=== PATIENT | male | born 1945 | race Caucasian/White ===

== ENCOUNTER 2018-06-04 20:42 | Inpatient (IN) ==
[2018-06-05] MEDS ORDERED: *HR* FentaNYL (PF) 100 MCG/2 ML VIAL IVP PRN (02:29)
[2018-06-05] MEDS ORDERED: Ondansetron 4 MG/2 ML VIAL IVP PRN (02:31)
[2018-06-05] MEDS: 0.9 % Sodium Chloride 1,000 ML IVC SCH ×2 (03:27→22:12)
[2018-06-05 04:15] LABS: Basophils % 0.3 %; Eosinophils % 0.3 %; Hematocrit 37.8 % (37.5-50.1); Hemoglobin 12.8 g/dL (12.9-16.9); Immature Granulocytes % 0.2 % (0-4); Lymphocytes # 1.6 K/mcL (0.6-4.6); Lymphocytes % 14.6 %; Mean Corpuscular HGB Conc 33.9 g/dL (31.6-35.5); Mean Corpuscular Hemoglobin 30.6 pg (28.0-33.3); Mean Corpuscular Volume 90.4 fL (83.0-100.0); Mean Platelet Volume 9.6 fL (9.4-12.4); Monocytes # 0.4 K/mcL (0.0-1.3); Monocytes % 3.8 %; Neutrophils # 8.6 K/mcL (1.6-8.9); Platelet Count 121 K/mcL (140-400); Red Blood Count 4.18 M/mcL (4.19-5.50); Red Cell Distribution Width 14.8 % (11.5-14.5); Segmented Neutrophils % 80.8 %
[2018-06-05 04:38] LABS: Alanine Aminotransferase 13 Units/L (7-52); Albumin 3.1 g/dL (3.5-5.7); Alkaline Phosphatase 56 Units/L (34-104); Aspartate Amino Transferase 19 Units/L (13-39); BUN/Creatinine Ratio 31 (6-26); Bilirubin,Direct 0.2 mg/dL (0.0-0.2); Bilirubin,Indirect 0.8 mg/dL (0.0-1.2); Blood Urea Nitrogen 23 mg/dL (8-23); Calcium 8.4 mg/dL (8.6-10.3); Carbon Dioxide 22 mEq/L (23-29); Chloride 107 mEq/L (98-107); Globulin 3.1 g/dL (2.4-3.5); Glucose 101 mg/dL (70-105); Osmolality,Calculated 280 (280-300); Potassium 4.1 mEq/L (3.5-5.1); Sodium 133 mEq/L (136-145); Total Protein 6.2 g/dL (6.4-8.9); eGFR For Non-African Americans > 60 (> 60)
[2018-06-05] MEDS ORDERED: Naloxone 0.4 MG/ML INJ IVP PRN (04:44)
--- NOTE | 2018-06-05 05:06 | Internal Med History&Physical ---
Date of Encounter: 06/05/18 Time of Encounter: 04:00 Internal Medicine - H&P: HPI Chief complaint: RUQ pain Admitted From: Hospital to Hospital Transfer Plans for Post Hospital Care: Home History of present illness: Mr. Alexander is a 73 year old male who presents in transfer from [facility] ER with complaints of right upper quadrant abdominal pain, nausea, vomiting, and one episode of diarrhea. Symptoms started yesterday and progressively worsened. They double him over a few times. As such, he proceeded to go to ER where he was evaluated and found to have CT evidence of suspected cholecystitis. I was contacted to transfer patient to [facility] for ongoing care and further workup of his troponin elevation. Upon my assessment of the patient, he has minimal abdominal pain now. He does have some nausea. His pain is easily reproducible by palpation of his right upper quadrant. He denies any chest pain, shortness of breath, or diaphoresis. He has had some minimal heartburn. He denies any fevers, shakes, chills, or night sweats. I reviewed his labs from [facility] and note the EKG. He has left bundle branch block on his EKG with no old EKGs to review. He denies any history of heart disease, but he admits to having had a stroke several years ago. He also states he has a Loret[place] filter in place while he was hospitalized at [facility] about 3 years ago. He is unclear as to why he has N[place] filter. He denies any prior history of DVT or PE. He does have some residual left-sided deficits from his stroke. He is a rather poor historian and does not recall much of his medical history. Past Med Surg Social Fam HX - Past Medical History Attestation: Yes The following information was validated with the patient. Source: patient, old records reviewed, other ([facility] records) Medical history: COPD, CVA, DVT, hypertension Psychiatric history: no psych history - Past Surgical History Surgical History: herniorrhaphy, hip replacement Additional surgical history: Loretto filter - Social History Smoking Status: Current every day smoker Smokeless Tobacco Status: No Alcohol use: none Drug use: none Current living situation: Home - Independent Activity Level: Independent ambulation Recent Out of Country Travel Within the Last 8 Weeks: No - Family History Brother Name: Daljit Alexander Age: 74 Twin of Family Member: Yes, Fraternal Living Status: Still Living Hx Family Cardiac Disorders: Yes (cabg) Hx Family Respiratory Disorders: No Hx Family Cancer: No Hx Family GI Disorders: No Hx Family Genitourinary Disorders: No Hx Family Endocrine Disorder: No Mother Living Status: Hx Family Cardiac Disorders: No Hx Family GI Disorders: No Father Living Status: Hx Family Cardiac Disorders: Yes Hx Family GI Disorders: No Internal Medicine - H&P: Meds Aspirin [Lo-Dose Aspirin EC] 81 mg PO DAILY 06/04/18 [History] 3 Allergy/AdvReac Type Severity Reaction Status Date / Time adhesive tape Allergy Rash Verified 06/04/18 17:55 Penicillins Allergy Hives Verified 06/04/18 17:55 - Constitutional Constitutional: no chills, no fever(s), no night sweats - EENT Eyes: change in vision (right eye -- cataract), no blurry vision Ears: no ear pain, no tinnitus Nose, mouth and throat: no nasal congestion, no sinus pressure, no sore throat - Cardiovascular Cardiovascular ROS IM: no chest pain, no diaphoresis, no dyspnea - Respiratory Respiratory: no cough, no hemoptysis, no chest congestion, no excessive phlegm production, no change in phlegm color - Gastrointestinal Gastrointestinal: abdominal pain, diarrhea, nausea, vomiting, no hematemesis, no hematochezia, no melena - Genitourinary Genitourinary ROS male: no dysuria, no flank pain, no hematuria - Musculoskeletal Musculoskeletal ROS IM: no arthralgias, no back pain - Integumentary Integumentary IM: no rash, no jaundice - Neurological Neurological ROS: weakness (left sided -- from old stroke), no dizziness, no focal weakness, no frequent falls, no headache(s) - Psychiatric Psychiatric: no anxiety, no depression - Endocrine Endocrine IM: no polydipsia, no polyuria - Allergic/Immunologic Allergic/Immunologic: GI upset with certain foods - Constitutional Vitals: Temp Pulse Resp BP Pulse Ox 97 F L 77 15 121/69 91 06/05/18 00:00 06/05/18 00:00 06/05/18 00:00 06/05/18 00:00 06/05/18 00:00 General appearance: Present: cooperative, A&O X 3, pleasant, no acute distress, answers questions appropriately Exam: see below - Head Head exam: Present: atraumatic, normal inspection - Eye Eye exam: Present: EOMI. Absent: PERRL, scleral icterus Pupils: Present: normal accommodation Additional comments: right cataract - ENT ENT exam: Present: mucous membranes dry, normal exam, normal oropharynx - Neck Neck exam general surgery: Present: full ROM, supple. Absent: tenderness, nuchal rigidity, thyromegaly - Respiratory Respiratory exam: Present: CTAB. Absent: chest wall tenderness, rales, rhonchi , wheezes - Cardiovascular Cardiovascular exam: Present: RRR, +S1, +S2. Absent: diastolic murmur, systolic murmur - GI/Abdominal GI/Abdominal exam: Present: guarding, hypoactive bowel sounds, soft, tenderness (RUQ), no peritoneal signs. Absent: hepatomegaly, rebound, splenomegaly - Extremities Exam Extremities exam: Present: normal capillary refill, warm, radial pulses palpable and symmetrical. Absent: calf tenderness, tenderness Additional comments: left hand in contracture from old stroke - Back Exam Back exam: Absent: CVA tenderness (L), CVA tenderness (R) - Neurological Exam Neurological exam: Present: alert, oriented X3. Absent: no focal deficits ( left hand/arm contracted from old stroke) - Psychiatric Psychiatric exam: Present: normal affect, normal mood - Skin Skin exam: Present: dry, warm. Absent: intact Internal Med - H&P Results - Labs CBC & Chem 7: 06/05/18 04:07 06/05/18 04:07 Labs: Short CBC 06/05/18 Range/Units 04:07 WBC 10.6 (4.3-11.1) K/mcL Hgb 12.8 L D (12.9-16.9) g/dL Hct 37.8 (37.5-50.1) % Plt Count 121 L (140-400) K/mcL Neutrophils # 8.6 (1.6-8.9) K/mcL BMP 06/05/18 04:07 Sodium 133 L Potassium 4.1 Chloride 107 Carbon Dioxide 22 L BUN 23 Creatinine 0.75 Glucose 101 Calcium 8.4 L Cardiac Enzymes 06/05/18 Range/Units 04:07 Troponin I 0.25 H* (< 0.04) ng/mL Liver Function 06/05/18 Range/Units 04:07 Total Bilirubin 1.0 (0.3-1.0) mg/dL Direct Bilirubin 0.2 (0.0-0.2) mg/dL AST 19 (13-39) Units/L ALT 13 (7-52) Units/L Alkaline Phosphatase 56 (34-104) Units/L Albumin 3.1 L (3.5-5.7) g/dL - EKG Data -: EKG Interpreted by Myself - EKG Data Prior EKG available for review: no EKG comments: 06/05/18 05:16 LBBB - Diagnostic Studies CT scan - abdomen Additional comments: Report reviewed: GB thickening and cholecystitis. - Assessment and plan (1) Acute cholecystitis Current Visit: Yes Status: Suspected Assessment and plan: 1. Will order RUQ ultrasound to evaluate GB. 2. Continue IV antibiotics. 3. Will need surgery consult today; however, if surgery necessary, will need to discuss with cardiology and if/when patient may proceed with surgery. 4. NPO, pain control, nausea control. 5. Will trend CBC, LFT's, and chemistries. (2) Elevated troponin I level Current Visit: Yes Status: Acute Assessment and plan: 1. Patient denies CP but patient has LBBB (presumed new). 2. Will trend troponins and EKG's. 3. Will order ECHO. 4. Consult cardiology for further work-up. (3) DVT prophylaxis Current Visit: Yes Status: Acute Assessment and plan: 1. Heparin SQ.
[2018-06-05 05:21] LABS: INR 1.4
[2018-06-05 05:22] LABS: Prothrombin Time 15.3 Seconds (9.4-12.1)
[2018-06-05 05:24] LABS: Activated Partial Thrombo Time 29.3 Seconds (26.0-36.0)
[2018-06-05] MEDS: *HR* Heparin 5,000 UNIT/ML VIAL SQ SCH ×2 (05:59→17:56)
[2018-06-05] MEDS ORDERED: MORPHINE SUL Oral CONC 10 MG/0.5 ML ORAL.SYG SL PRN (09:56)
--- NOTE | 2018-06-05 10:06 | Cardiology Consult Note ---
Date of Encounter: 06/05/18 Time of Encounter: 09:58 Assessment and Plan (1) LBBB (left bundle branch block) Current Visit: Yes Status: Acute EKG shows sinus bradycardia, HR 59 bpm. LBBB. Prior EKG from 2015 reviewed and shows LBBB. This is not a new finding. (2) Elevated troponin I level Current Visit: Yes Status: Acute Mild troponin elevation up to 0.25 in the setting of acute cholecystitis. C/o chest pain yesterday that occurred after vomiting and relieved with 7-up. Likely GI related. He can complete moderate activity without anginal symptoms. Cardiac risk factors include family history (twin brother with OHS), tobacco use , and HTN. Check TTE. Noted patient may need surgery for acute cholecystitis. Would not delay surgery for testing if sugery is urgent. Discussion w patient/family: The assessment and plan as outlined above was discussed with the patient and/or family members who expressed understanding and agreement. All questions were answered. Thank you for involving us in the care of your patient. Please call with any questions. History of Present Illness Consult date: 06/05/18 Requesting physician: Earl Rocha Consult reason: LBBB, elevated troponin Chief complaint: abdominal pain History of present illness: Mr. Alexander is a 73 year old male with medical history of HTN, CVA, and tobacco use. He presents with 24 hours of nausea, vomiting, abdominal pain, and chest discomfort. He is found to have acute cholecystitis. Cardiology consulted for LBBB and elevated troponin. He states he was dry heaving for 20 minutes yesterday and developed midsternal burning discomfort. He drank a 7-up with relief . C/o RLQ pain for 24 hours that increases with movement. States he has not seen a family doctor in over 10 years. He was hospitalized 5 years ago at [place] for CVA. His work-up revealed LBBB, age undetermined. Troponin elevated up to 0.25. He denies exertional chest pain. 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 When he walks to his mailbox he may be somewhat SOB but it is unchanged. Denies diaphoresis or palpitations. Past Med Surg Social Fam HX - Past Medical History Medical history: COPD, CVA, DVT, hypertension Psychiatric history: no psych history - Past Surgical History Surgical History: herniorrhaphy, hip replacement Additional surgical history: [place] filter - Social History Smoking Status: Current every day smoker Smokeless Tobacco Status: No Alcohol use: none Drug use: none - Family History Brother Name: Daljit Alexander Age: 74 Twin of Family Member: Yes, Fraternal Living Status: Still Living Hx Family Cardiac Disorders: Yes (cabg) Hx Family Respiratory Disorders: No Hx Family Cancer: No Hx Family GI Disorders: No Hx Family Genitourinary Disorders: No Hx Family Endocrine Disorder: No Mother Living Status: Hx Family Cardiac Disorders: No Hx Family GI Disorders: No Father Living Status: Hx Family Cardiac Disorders: Yes Hx Family GI Disorders: No Medications and Allergies Aspirin [Lo-Dose Aspirin EC] 81 mg PO DAILY 06/04/18 [History] 3 Allergy/AdvReac Type Severity Reaction Status Date / Time adhesive tape Allergy Rash Verified 06/04/18 17:55 Penicillins Allergy Hives Verified 06/04/18 17:55 All Systems Review: The remainder of the systems were reviewed and are negative Physical Examination Vital Signs, Last 4 Hours Temp Pulse Resp BP Pulse Ox 06/05/18 07:21 97.6 F 69 16 121/77 97 General: Conversant, No Apparent Distress HEENT: Atraumatic, Normocephaly, Mucus Membranes Moist Neck: No JVD, Normal carotid pulses Cardiac: Reg Rate and Rhythm, Normal S1 and S2, No Murmur Lungs: Normal Breath Sounds, No Wheeze, Rales, Rhonchi Neuro: Alert and responsive, Other (Contracted left arm) Abdomen: Soft, Other (tender to palpation) Skin: Other (scabbed areas on BLE) Musculoskeletal: No Chest Wall Tenderness Extremities: No Clubbing, No Cyanosis, No Edema, Normal Pulses Results 06/05/18 04:07 06/05/18 04:07 Lab Results 06/05/18 06/05/18 06/05/18 04:07 04:07 04:07 WBC 10.6 Hgb 12.8 L D Hct 37.8 Plt Count 121 L INR 1.4 APTT 29.3 Sodium Potassium Chloride Carbon Dioxide BUN Creatinine Glucose Calcium Total Bilirubin AST ALT Alkaline Phosphatase Troponin I 0.25 H* 06/05/18 04:07 WBC Hgb Hct Plt Count INR APTT Sodium 133 L Potassium 4.1 Chloride 107 Carbon Dioxide 22 L BUN 23 Creatinine 0.75 Glucose 101 Calcium 8.4 L Total Bilirubin 1.0 AST 19 ALT 13 Alkaline Phosphatase 56 Troponin I - EKG Interpretation EKG results cardiology: personally reviewed, left bundle branch block (not new) Consult Discharge Plan - Plan Referrals: NONE,PCP [Primary Care Provider] - Joselo Loaiza MD [Family Provider] -
[2018-06-05] MEDS: MetroNIDAZOLE 500 MG/100 ML 500 MG/100 ML BAG IVPB SCH ×2 (10:21→16:40)
[2018-06-05] MEDS: Aspirin Enteric Coated 81 MG Tablet PO SCH (10:21)
[2018-06-05] MEDS ORDERED: *HR* Morphine 2 MG/ML SYRINGE IVP ONE (13:59)
--- NOTE | 2018-06-05 15:33 | Event Note ---
<[place] nunn - Last Filed: 06/05/18 17:50> Date of Encounter: 06/05/18 Time of Encounter: 09:45 S: Mr. Alexander is a 73 y/o male who was admitted as a transfer from [facility] ED for RUQ pain x 1 day and incidental finding of elevated troponin of 0.25. His PMH is significant for CVA 3 years ago, HTN, tobacco use, with [place] filter in place. Patient showed LBBB on ECG, [facility] CT abd/pelvis showed cholecystic changes. At time of evaluation he denies chest pain, shortness of breath, fever, or sweating. O: Gen: afebrile, NAD, a&ox3, nondiaphoretic CV: RRR in 70s, +S1, +S2 Lung: CTAB, normal chest wall excursion Abd: Negative velez's sign, soft, nontender nondistended A/P: 1. 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 Elevated troponin LBBB seen on previous ekg from 2015 troponin downtrending 0.25 ->0.15->0.15 echo with ef of 45% Cardiology following - suspect gallbladder inflammatory response as type 2 source of elevation, however cannot rule out ACS so plan is for LHC to be discussed AM; patient to be npo at midnight, clear liquids for 1 meal tonight 3. dvt proph heparin sq q12h <Antwon De - Last Filed: 06/05/18 18:43> Date of Encounter: 06/05/18 Mr Alexander was placed in observation earlier today due to concern for acute cholecystitis and elevated troponin. Currently he has no pain. HIDA consistent with chronic disease. Plan LHC per cardiology Surgical eval Agree with assessment and plan as above.
--- NOTE | 2018-06-05 17:43 | Event Note ---
Date of Encounter: 06/05/18 Time of Encounter: 17:41 - Cardiology Event Note TTE reviewed. Ef noted to be reduced at 45%. No prior history of CAD. Recommend LHC tomorrow. Discussed with Dr. Edge. No emergent need for cholecystectomy. Planning for possible surgery on . Okay to proceed with C.
--- NOTE | 2018-06-05 17:56 | General Surgery Consult Note ---
<Artis Perez R - Last Filed: 06/05/18 17:54> Date of Encounter: 06/05/18 Time of Encounter: 17:54 Assessment and Plan (1) Acute cholecystitis Current Visit: Yes Status: Suspected Patient status has improved today since initiation of pain management and antibiotic therapy. Acute cholecystitis is suspected at this time. Gallbladder ultrasound did reveal evidence of gallstones, biliary sludge, as well as possible pericholecystic fluid. HIDA scan did demonstrate gallbladder dysfunction. Patient possibly to surgery on , he is on schedule Continue antibiotic therapy with ciprofloxacin and metronidazole Continue comfort care and pain management Incentive spirometry every 1 hour while awake Ambulation 3 times a day with assistance NPO prior to surgery (2) Elevated troponin I level Current Visit: Yes Status: Acute We will defer treatment to cardiology and follow recommendations. Per cardiology [facility] possible in the a.m. Nothing by mouth after midnight in anticipation of possible left heart catheter At present from a surgical standpoint patient is nonemergent. History of Present Illness Consult date: 06/05/18 (Dr. Edge) History of present illness: Patient is 73-year-old male initially presenting to the [place] ER yesterday afternoon with chief complaint of right lower quadrant abdominal pain. Patient states pain started suddenly approximately 10:30 AM. Pain is sharp in quality, and rated at 10/10 at that time. No prior history of similar pain. Patient endorses nausea and vomiting at onset. Denies change in bowel habits, diarrhea , constipation, hematochezia, or melena. Patient denies fever, or urinary symptoms. Initial CT demonstrated evidence of a suspected cholecystitis as well as troponin elevation, patient was transported to [place] for ongoing care. Ultrasound did demonstrate biliary sludge and evidence of gallstones, possible pericholecystic fluid and gallbladder inflammation. HIDA scan did demonstrate abnormal and slowed gallbladder function. At present patient is tolerating clear liquid diet without significant pain. Currently he states his pain is 3/10 at rest, does increase to 8/10 with excessive movement and coughing. Denies nausea, vomiting, diarrhea, or fever. Patient states last bowel movement was yesterday. Has been passing flatus today. Patient states that he is fearful of pain recurring due to its intensity. Past Med Surg Social Fam HX - Past Medical History Medical history: COPD, CVA, DVT, hypertension Psychiatric history: no psych history - Past Surgical History Surgical History: herniorrhaphy, hip replacement Additional surgical history: [place] filter - Social History Smoking Status: Current every day smoker Smokeless Tobacco Status: No Alcohol use: none Drug use: none - Family History Brother Name: Daljit Alexander Age: 74 Twin of Family Member: Yes, Fraternal Living Status: Still Living Hx Family Cardiac Disorders: Yes (cabg) Hx Family Respiratory Disorders: No Hx Family Cancer: No Hx Family GI Disorders: No Hx Family Genitourinary Disorders: No Hx Family Endocrine Disorder: No Mother Living Status: Hx Family Cardiac Disorders: No Hx Family GI Disorders: No Father Living Status: Hx Family Cardiac Disorders: Yes Hx Family GI Disorders: No Medications and Allergies Aspirin [Lo-Dose Aspirin EC] 81 mg PO DAILY 06/04/18 [History] 3 Allergy/AdvReac Type Severity Reaction Status Date / Time adhesive tape Allergy Rash Verified 06/04/18 17:55 Penicillins Allergy Hives Verified 06/04/18 17:55 Review of Systems All systems PM: The remainder of the systems were reviewed and are negative - Gastrointestinal abdominal pain, nausea, vomiting General Surgery Exam Initial Vital Signs Pulse Resp BP Pulse Ox 81 15 135/71 95 06/04/18 22:44 06/04/18 22:44 06/04/18 22:44 06/04/18 22:44 - General physical appearance no distress, other (Mild pain) - Eyes PERRL, normal ocular movement - ENT atraumatic, normocephalic - Neck trachea midline - Respiratory normal respiratory effort, clear to auscultation - Cardiovascular Cardiovascular exam: Present: RRR - Abdomen Abdomen general surgery: Present: bowel sounds present, tender, guarding (To deep palpation of the right upper and lower quadrants) Abdominal Tenderness: Present: RUQ, RLQ - Integumentary Integumentary general surgery: Present: warm and dry, no abnormal pigmentation - Neurologic Present: CN 2-12 grossly intact - Psychiatric Psychiatric general surgery: Present: A&Ox3, appropriate, speech is normal Exam Initial Vital Signs Pulse Resp BP Pulse Ox 81 15 135/71 95 06/04/18 22:44 06/04/18 22:44 06/04/18 22:44 06/04/18 22:44 Results - Labs 06/05/18 04:07 06/05/18 04:07 Abnormal lab results RBC 4.18 M/mcL (4.19-5.50) L 06/05/18 04:07 Hgb 12.8 g/dL (12.9-16.9) L D 06/05/18 04:07 RDW 14.8 % (11.5-14.5) H 06/05/18 04:07 Plt Count 121 K/mcL (140-400) L 06/05/18 04:07 PT 15.3 Seconds (9.4-12.1) H 06/05/18 04:07 Sodium 133 mEq/L (136-145) L 06/05/18 04:07 Carbon Dioxide 22 mEq/L (23-29) L 06/05/18 04:07 BUN/Creatinine Ratio 31 (6-26) H 06/05/18 04:07 Calcium 8.4 mg/dL (8.6-10.3) L 06/05/18 04:07 Troponin I 0.15 ng/mL (< 0.04) H* 06/05/18 16:03 Serum Total Protein 6.2 g/dL (6.4-8.9) L 06/05/18 04:07 Albumin 3.1 g/dL (3.5-5.7) L 06/05/18 04:07 Albumin/Globulin Ratio 1.0 (1.1-2.2) L 06/05/18 04:07 Diabetes panel 06/05/18 Range/Units 04:07 Sodium 133 L (136-145) mEq/L Potassium 4.1 (3.5-5.1) mEq/L Chloride 107 (98-107) mEq/L Carbon Dioxide 22 L (23-29) mEq/L BUN 23 (8-23) mg/dL Creatinine 0.75 (0.70-1.30) mg/dL Glucose 101 (70-105) mg/dL Calcium 8.4 L (8.6-10.3) mg/dL AST 19 (13-39) Units/L ALT 13 (7-52) Units/L Alkaline Phosphatase 56 (34-104) Units/L Albumin 3.1 L (3.5-5.7) g/dL Calcium panel 06/05/18 Range/Units 04:07 Calcium 8.4 L (8.6-10.3) mg/dL Albumin 3.1 L (3.5-5.7) g/dL Pituitary panel 06/05/18 Range/Units 04:07 Sodium 133 L (136-145) mEq/L Potassium 4.1 (3.5-5.1) mEq/L Chloride 107 (98-107) mEq/L Carbon Dioxide 22 L (23-29) mEq/L BUN 23 (8-23) mg/dL Creatinine 0.75 (0.70-1.30) mg/dL Glucose 101 (70-105) mg/dL Calcium 8.4 L (8.6-10.3) mg/dL Adrenal panel 06/05/18 Range/Units 04:07 Sodium 133 L (136-145) mEq/L Potassium 4.1 (3.5-5.1) mEq/L Chloride 107 (98-107) mEq/L Carbon Dioxide 22 L (23-29) mEq/L BUN 23 (8-23) mg/dL Creatinine 0.75 (0.70-1.30) mg/dL Glucose 101 (70-105) mg/dL Calcium 8.4 L (8.6-10.3) mg/dL Total Bilirubin 1.0 (0.3-1.0) mg/dL AST 19 (13-39) Units/L ALT 13 (7-52) Units/L Alkaline Phosphatase 56 (34-104) Units/L Albumin 3.1 L (3.5-5.7) g/dL All other labs normal. Consult Discharge Plan - Plan Referrals: Joselo Loaiza MD [Family Provider] - NONE,PCP [Primary Care Provider] - <Arabella Edge - Last Filed: 06/07/18 09:30> Date of Encounter: 06/05/18 Time of Encounter: 07:45 Assessment and Plan (1) Symptomatic cholelithiasis Current Visit: Yes Status: Acute discussed with patient symptoms, labs and imaging results. He likely has symptomatic cholelithiasis. WIll plan laparoscopic cholecystectomy, possible cholangiograms, possible open in the next 48 hrs. risk and benefits disucssed and he wihses to proceed Ok for cardiology to evaluate patient first. clears prn pain control is on home aspirin History of Present Illness Requesting physician: Villa Robertson History of present illness: Patient with acute onset right sided abdominal pain, sharp without radiation. Associated nausea and emesis with the pain. No diarrhea, fevers,chills. Went to ED, CT showed gallbladder wall thickening. US showed stones and sludge. HIDA with delayed filling of gallbladder. Patients pain is improved but still present and dull without radiation. Worse with movement. Past Med Surg Social Fam HX - Past Medical History Source: patient Medical history: coronary artery disease, CVA (with left arm contractures) - Past Surgical History Surgical History: herniorrhaphy (Rt groin) Review of Systems All systems PM: reviewed and no additional remarkable complaints except as stated All systems PM: The remainder of the systems were reviewed and are negative General Surgery Exam Initial Vital Signs Pulse Resp BP Pulse Ox 81 15 135/71 95 06/04/18 22:44 06/04/18 22:44 06/04/18 22:44 06/04/18 22:44 - General physical appearance no distress, cachectic, chronically ill - Eyes normal ocular movement left lesions (cataract) - ENT normal mucosa, normocephalic - Neck trachea midline - Respiratory normal expansion, normal respiratory effort - Cardiovascular Cardiovascular exam: Present: RRR - Abdomen Abdomen general surgery: Present: bowel sounds present, soft, tender. Absent: distended, guarding, rebound Abdominal Tenderness: Present: RUQ - Integumentary Integumentary general surgery: Present: warm and dry - Neurologic Present: CN 2-12 grossly intact - Musculoskeletal Present: normal posture, other (left arm contracture) - Psychiatric Psychiatric general surgery: Present: A&Ox3, appropriate, speech is normal Exam Initial Vital Signs Pulse Resp BP Pulse Ox 81 15 135/71 95 06/04/18 22:44 06/04/18 22:44 06/04/18 22:44 06/04/18 22:44 Results - Labs 06/07/18 03:10 06/07/18 03:10 Abnormal lab results RBC 3.90 M/mcL (4.19-5.50) L 06/07/18 03:10 Hgb 12.3 g/dL (12.9-16.9) L 06/07/18 03:10 Hct 36.2 % (37.5-50.1) L 06/07/18 03:10 Plt Count 110 K/mcL (140-400) L 06/07/18 03:10 Platelet Estimate Slight Decrease (Normal) L 06/06/18 05:46 PT 13.8 Seconds (9.4-12.1) H 06/07/18 03:10 Sodium 134 mEq/L (136-145) L 06/07/18 03:10 Carbon Dioxide 22 mEq/L (23-29) L 06/07/18 03:10 Creatinine 0.59 mg/dL (0.70-1.30) L 06/07/18 03:10 Calculated Osmolality 276 (280-300) L 06/07/18 03:10 Calcium 8.1 mg/dL (8.6-10.3) L 06/07/18 03:10 Troponin I 0.15 ng/mL (< 0.04) H* 06/05/18 16:03 Serum Total Protein 5.8 g/dL (6.4-8.9) L 06/06/18 05:46 Albumin 2.8 g/dL (3.5-5.7) L 06/06/18 05:46 Albumin/Globulin Ratio 0.9 (1.1-2.2) L 06/06/18 05:46 HDL Cholesterol 21 mg/dL (40-59) L 06/06/18 05:46 Diabetes panel 06/07/18 Range/Units 03:10 Sodium 134 L (136-145) mEq/L Potassium 3.5 (3.5-5.1) mEq/L Chloride 107 (98-107) mEq/L Carbon Dioxide 22 L (23-29) mEq/L BUN 11 (8-23) mg/dL Creatinine 0.59 L (0.70-1.30) mg/dL Glucose 82 (70-105) mg/dL Calcium 8.1 L (8.6-10.3) mg/dL Calcium panel 06/07/18 Range/Units 03:10 Calcium 8.1 L (8.6-10.3) mg/dL Pituitary panel 06/07/18 Range/Units 03:10 Sodium 134 L (136-145) mEq/L Potassium 3.5 (3.5-5.1) mEq/L Chloride 107 (98-107) mEq/L Carbon Dioxide 22 L (23-29) mEq/L BUN 11 (8-23) mg/dL Creatinine 0.59 L (0.70-1.30) mg/dL Glucose 82 (70-105) mg/dL Calcium 8.1 L (8.6-10.3) mg/dL Adrenal panel 06/07/18 Range/Units 03:10 Sodium 134 L (136-145) mEq/L Potassium 3.5 (3.5-5.1) mEq/L Chloride 107 (98-107) mEq/L Carbon Dioxide 22 L (23-29) mEq/L BUN 11 (8-23) mg/dL Creatinine 0.59 L (0.70-1.30) mg/dL Glucose 82 (70-105) mg/dL Calcium 8.1 L (8.6-10.3) mg/dL All other labs normal. - Imaging CT scan - abdomen: report reviewed CT scan - pelvis: report reviewed US - abdomen: report reviewed Additional studies: HERNAN
[2018-06-05] MEDS: Nicotine 7 MG PATCH.TD24 TD SCH (21:06)
[2018-06-06] MEDS: MetroNIDAZOLE 500 MG/100 ML 500 MG/100 ML BAG IVPB SCH ×4 (01:05→23:57)
[2018-06-06] MEDS: *HR* Heparin 5,000 UNIT/ML VIAL SQ SCH ×2 (05:52→17:24)
[2018-06-06 06:18] LABS: Basophils % 0.2 %; Eosinophils # 0.1 K/mcL (0.0-0.6); Eosinophils % 1.3 %; Hematocrit 37.6 % (37.5-50.1); Hemoglobin 12.5 g/dL (12.9-16.9); Immature Granulocytes % 0.5 % (0-4); Lymphocytes % 17.1 %; Mean Corpuscular HGB Conc 33.2 g/dL (31.6-35.5); Mean Corpuscular Hemoglobin 31.3 pg (28.0-33.3); Mean Corpuscular Volume 94.2 fL (83.0-100.0); Mean Platelet Volume 10.1 fL (9.4-12.4); Monocytes # 0.3 K/mcL (0.0-1.3); Neutrophils # 4.6 K/mcL (1.6-8.9); Platelet Count 94 K/mcL (140-400); Red Blood Count 3.99 M/mcL (4.19-5.50); Red Cell Distribution Width 14.6 % (11.5-14.5); Segmented Neutrophils % 75.9 %
[2018-06-06 06:37] LABS: Alanine Aminotransferase 9 Units/L (7-52); Albumin 2.8 g/dL (3.5-5.7); Albumin/Globulin Ratio 0.9 (1.1-2.2); Alkaline Phosphatase 53 Units/L (34-104); Aspartate Amino Transferase 15 Units/L (13-39); BUN/Creatinine Ratio 24 (6-26); Bilirubin,Total 0.7 mg/dL (0.3-1.0); Blood Urea Nitrogen 18 mg/dL (8-23); Carbon Dioxide 23 mEq/L (23-29); Chloride 108 mEq/L (98-107); Chol/HDL Ratio 3.5 (0-4.9); Cholesterol 74 mg/dL (< 200); Glucose 84 mg/dL (70-105); HDL Cholesterol 21 mg/dL (40-59); LDL Cholesterol,Calculated 41 mg/dL (0-99); Magnesium 1.8 mg/dL (1.6-2.6); Osmolality,Calculated 277 (280-300); Potassium 3.9 mEq/L (3.5-5.1); Sodium 133 mEq/L (136-145); Total Protein 5.8 g/dL (6.4-8.9); Triglycerides 60 mg/dL (< 150); eGFR For Non-African Americans > 60 (> 60)
[2018-06-06 06:39] LABS: Platelet Estimate Slight Decrease (Normal)
[2018-06-06] MEDS: 0.9 % Sodium Chloride 1,000 ML IVC SCH ×3 (07:00→22:00)
--- NOTE | 2018-06-06 08:13 | Electrocardiograph Report ---
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
[2018-06-06] MEDS: Aspirin Enteric Coated 81 MG Tablet PO SCH (08:49)
[2018-06-06] MEDS: Nicotine 7 MG PATCH.TD24 TD SCH (08:49)
--- NOTE | 2018-06-06 09:07 | Event Note ---
Date of Encounter: 06/06/18 Time of Encounter: 09:05 - Cardiology Event Note [facility] recommended for newly reduced EF at 45%. Troponin elevation at 0.25, 0.15, 0.15. C R/B/A discussed and he agrees to proceed. Vital Signs Temp Pulse Resp BP Pulse Ox 06/06/18 07:59 97.1 F L 69 16 152/85 96 06/06/18 04:48 98.0 F 68 15 137/81 95 06/06/18 00:28 97.8 F 57 15 140/74 97 06/05/18 20:30 98.1 F 61 15 175/82 97 06/05/18 16:36 98 F 70 17 143/87 95 06/05/18 11:01 97.7 F 68 17 135/77 98 Intake and Output 06/05/18 06/06/18 06/06/18 23:59 07:59 15:59 Intake Total 780 / 780 1100 / 1100 Output Total 0 / 0 675 / 675 750 / 750 Balance 780 / 780 425 / 425 -750 / -750 Intake: IV Fluids 300 / 300 1100 / 1100 0.9 % Sodium Chloride 1,000 ML 1000 / 1000 @ 125 mls/hr IVC .Q8H [facility]ATT Rx#: [id number] Cipro Premix 400 MG/200 ML 400 200 / 200 mg In 200 ml @ 200 mls/hr IVPB Q12HR [facility]ATT Rx#:[id number] Flagyl Premix 500 MG/100 ML 500 100 / 100 100 / 100 mg In 100 ml @ 100 mls/hr IVPB Q8HR [facility]ATT Rx#:[id number] Oral 480 / 480 0 / 0 Output: Urine 0 / 0 675 / 675 750 / 750 Other: Weight 61.2 kg Patient Weight 06/06/18 23:59 Weight 61.2 kg
[2018-06-06] MEDS ORDERED: Nitroglycerin 1,000 MCG/10 ML VIAL IV ONE (10:34)
[2018-06-06] MEDS ORDERED: 0.9 % Sodium Chloride 1,000 ML ONE ×2 (10:34→10:39)
[2018-06-06] MEDS ORDERED: Heparin 1,000 UNITS/500 mL 500 ML ONE (10:34)
[2018-06-06] MEDS ORDERED: ISOVUE-370 200 ML INFUS..BTL IV ONE (10:34)
[2018-06-06] MEDS ORDERED: *HR* Heparin 10,000 UNIT/10 ML VIAL ONE (10:34)
--- NOTE | 2018-06-06 11:07 | General Surgery Progress Note ---
Date of Encounter: 06/06/18 Time of Encounter: 08:00 - Assessment and Plan (1) Acute cholecystitis Current Visit: Yes Status: Acute Patient status remains stable today. Minimal pain at rest. Patient has been NPO today for pending LHC. Cardiology planning to complete LHC prior to cholecystecomty, at this time uncertain if cath will be done tonight or in the a.m. Plan: To operating room tomorrow for cholecystectomy if patient gets LHC done today. Continue antibiotic therapy with cipro and metronidazole Continue comfort care and pain managment Incentive spirometry every 1 hour while awake Ambulation TID while awake with assistance NPO prior to surgery (2) Elevated troponin I level Current Visit: Yes Status: Acute Cardiology planning LHC. Patient will remain NPO until timing is established Will plan surgical management of gallbladder following LHC Subjective Patient reports: no new complaints, pain is less, voiding w/o difficulty, flatus , no bowel movement, afebrile Narrative: Patient reports feeling the same as yesterday. Mild right upper and lower quadrant pain at rest, much worse with movement and cought. Patient has been NPO since last night. Denies nausea, vomiting, or bowel movement since admission. Is passing flatus. Denies urinary symptoms. Objective Vital Signs - Last 8 Hours Temp Pulse Resp BP Pulse Ox 06/06/18 07:59 97.1 F L 69 16 152/85 96 06/06/18 04:48 98.0 F 68 15 137/81 95 Intake and Output 06/05/18 06/06/18 06/06/18 23:59 07:59 15:59 Intake Total 780 / 780 1100 / 1100 100 / 100 Output Total 0 / 0 675 / 675 750 / 750 Balance 780 / 780 425 / 425 -650 / -650 Intake: IV Fluids 300 / 300 1100 / 1100 100 / 100 0.9 % Sodium Chloride 1,000 ML 1000 / 1000 @ 125 mls/hr IVC .Q8H [facility]ATT Rx#: [id number] Cipro Premix 400 MG/200 ML 400 200 / 200 mg In 200 ml @ 200 mls/hr IVPB Q12HR [facility] Rx#:[id number] Flagyl Premix 500 MG/100 ML 500 100 / 100 100 / 100 100 / 100 mg In 100 ml @ 100 mls/hr IVPB Q8HR [facility]ATT Rx#:[id number] Oral 480 / 480 0 / 0 Output: Urine 0 / 0 675 / 675 750 / 750 Other: Weight 61.2 kg Patient Weight 06/06/18 23:59 Weight 61.2 kg - General physical appearance no distress, other (mild) - Eyes PERRL, normal ocular movement - ENT dry mucosa, atraumatic, normocephalic - Neck Neck exam: trachea midline - Respiratory clear to auscultation - Cardiovascular Cardiovascular exam: Present: RRR - Abdomen Abdomen: Present: bowel sounds present, soft, tender (Tenderness remain to palpation of the right abdomen, with most pain near the RLQ. No rebound.) Abdominal Tenderness: RUQ, RLQ - Integumentary no rash - Neurologic CN 2-12 grossly intact - Psychiatric oriented to time, oriented to person, oriented to place, speech is normal - Labs 06/06/18 05:46 06/06/18 05:46 Diabetes panel 06/06/18 Range/Units 05:46 Sodium 133 L (136-145) mEq/L Potassium 3.9 (3.5-5.1) mEq/L Chloride 108 H (98-107) mEq/L Carbon Dioxide 23 (23-29) mEq/L BUN 18 (8-23) mg/dL Creatinine 0.74 (0.70-1.30) mg/dL Glucose 84 (70-105) mg/dL Calcium 8.0 L (8.6-10.3) mg/dL AST 15 (13-39) Units/L ALT 9 (7-52) Units/L Alkaline Phosphatase 53 (34-104) Units/L Albumin 2.8 L (3.5-5.7) g/dL Triglycerides 60 (< 150) mg/dL HDL Cholesterol 21 L (40-59) mg/dL Calcium panel 06/06/18 Range/Units 05:46 Calcium 8.0 L (8.6-10.3) mg/dL Albumin 2.8 L (3.5-5.7) g/dL Pituitary panel 06/06/18 Range/Units 05:46 Sodium 133 L (136-145) mEq/L Potassium 3.9 (3.5-5.1) mEq/L Chloride 108 H (98-107) mEq/L Carbon Dioxide 23 (23-29) mEq/L BUN 18 (8-23) mg/dL Creatinine 0.74 (0.70-1.30) mg/dL Glucose 84 (70-105) mg/dL Calcium 8.0 L (8.6-10.3) mg/dL Adrenal panel 06/06/18 Range/Units 05:46 Sodium 133 L (136-145) mEq/L Potassium 3.9 (3.5-5.1) mEq/L Chloride 108 H (98-107) mEq/L Carbon Dioxide 23 (23-29) mEq/L BUN 18 (8-23) mg/dL Creatinine 0.74 (0.70-1.30) mg/dL Glucose 84 (70-105) mg/dL Calcium 8.0 L (8.6-10.3) mg/dL Total Bilirubin 0.7 (0.3-1.0) mg/dL AST 15 (13-39) Units/L ALT 9 (7-52) Units/L Alkaline Phosphatase 53 (34-104) Units/L Albumin 2.8 L (3.5-5.7) g/dL Consult Discharge Plan - Plan Referrals: Joselo Loaiza MD [Family Provider] - NONE,PCP [Primary Care Provider] -
--- NOTE | 2018-06-06 12:49 | Internal Med Progress Note ---
<Estrellita Curry R - Last Filed: 06/07/18 10:33> Hospitalist Progress Note - Encounter Date of Encounter: 06/07/18 Time of Encounter: 09:00 - Subjective Interval History: HPI: 73 yr. old male presented to the ED in [place] Monday morning with nausea and RUQ pain. Constant 10/10 pain worse with coughing, better with prescription pain pills granddaughter gave him. No vomiting, NPO for past 3 days. Diagnosed with cholecystitis via HIDA scan. Troponin .25 in ED, going for heart cath today. Will have cholescystectomy tomorrow if heart cath normal. ROS: Resp: SOB with exertion, intermittent non-productive cough CV: chest pain for 5 min Monday morning, relieved with belching GI: nausea; no vomiting, pain, diarrhea, constipation, acid reflux : no dysuria, trouble urinating Neuro: paralysis, numbness, and weakness of left wrist and fingers; no numbness - Exam Vitals: Temp Pulse Resp BP Pulse Ox 98.1 F 60 16 161/81 98 06/06/18 11:45 06/06/18 11:45 06/06/18 11:45 06/06/18 11:45 06/06/18 11:45 Exam: General: alert and oriented x 3 CV: RRR, no murmurs Resp: diffuse rhonci bilaterally GI: tender RLQ and right inguinal area, bowel sounds x 4, negative Yang sign Ext: no pedal edema Neuro: paralysis of left wrist and fingers, sensation intact - Assessment and Plan (1) Acute cholecystitis Current Visit: Yes Status: Acute Assessment and Plan: U/S shows equivocal cholecystitis; negative 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 by fitting supervisor afebrile, normal WBCs continuing cipro/flagyl HIDA scan shows possible chronic cholecystitis surgery consulted (2) Elevated troponin I level Current Visit: Yes Status: Acute Assessment and Plan: LBBB seen on previous ekg from 2015 troponin downtrending 0.25 ->0.15->0.15 echo with ef of 45% Cardiology following - suspect gallbladder inflammatory response as type 2 source of elevation, however cannot rule out ACS so plan is for LHC to be discussed AM; patient to be npo at midnight, clear liquids for 1 meal tonight DVT Prophylaxis: heparin sq q12h - Time Spent with Patient Total time spent is greater than 50% in coordination of care (as documented) at patient's floor/unit and/or counseling patient: Greater than 35 minutes Internal Medicine: Result - Labs CBC & Chem 7: 06/07/18 03:10 06/07/18 03:10 Labs: Short CBC 06/06/18 Range/Units 05:46 WBC 6.0 (4.3-11.1) K/mcL Hgb 12.5 L (12.9-16.9) g/dL Hct 37.6 (37.5-50.1) % Plt Count 94 L (140-400) K/mcL Neutrophils # 4.6 (1.6-8.9) K/mcL BMP 06/06/18 05:46 Sodium 133 L Potassium 3.9 Chloride 108 H Carbon Dioxide 23 BUN 18 Creatinine 0.74 Glucose 84 Calcium 8.0 L Cardiac Enzymes 06/05/18 Range/Units 16:03 Troponin I 0.15 H* (< 0.04) ng/mL Liver Function 06/06/18 Range/Units 05:46 Total Bilirubin 0.7 (0.3-1.0) mg/dL AST 15 (13-39) Units/L ALT 9 (7-52) Units/L Alkaline Phosphatase 53 (34-104) Units/L Albumin 2.8 L (3.5-5.7) g/dL - ABG Interpretation ABG results: PT/INR, D-dimer PT 15.3 Seconds (9.4-12.1) H 06/05/18 04:07 - Impressions Impressions Echocardiogram 06/05/18 04:44 Impressions: LVEF 45%. Mild global left ventricular systolic dysfunction. Mild left ventricular diastolic dysfunction. Atypical septal motion consistent with bundle branch block. Normal right ventricular structure and function. Mild tricuspid regurgitation. No pulmonary hypertension. Left Ventricular Wall Motion: Rest Echo Findings The apex, apical inferior, mid inferior, basal inferior, apical anterior, mid anterior, basal anterior, apical septal, mid inferior septal, basal inferior septal, apical lateral, mid anterior lateral, basal anterior lateral, mid anterior septal, mid inferior lateral, basal anterior septal and basal inferior lateral lezama were hypokinetic. Findings: Study Quality * Technically adequate exam. ECG Findings * Sinus rhythm with BBB. Left Ventricle * LVEF 45%. * Normal LV chamber size. * Mild global left ventricular systolic dysfunction. * Mild left ventricular diastolic dysfunction. * Atypical septal motion consistent with bundle branch block. Right Ventricle * Normal right ventricular structure and function. Left Atrium * Mildly dilated left atrium. Right Atrium * Normal right atrial size. Aortic Valve * Trileaflet aortic valve. * Mildly sclerotic aortic valve leaflets. * No aortic regurgitation. * No aortic stenosis. Mitral Valve * Normal mitral valve structure and function. * No mitral stenosis. * Trace mitral regurgitation. Tricuspid Valve * Normal tricuspid valve structure. * Mild tricuspid regurgitation. * No pulmonary hypertension. Pulmonic Valve * Normal pulmonic valve structure and function. * No pulmonic regurgitation. Aorta * Normally sized aortic root. Pericardium * The pericardium appears normal. IVC * Normal IVC dimensions and inspiratory collapse. Pulmonary Artery * Normal visualized portions of the main pulmonary artery. Bile Acid Absorption NM 06/05/18 12:18 IMPRESSION: Gallbladder visualization only after morphine administration may represent gallbladder dysfunction such as chronic cholecystitis. D/ / Rosas Garcia / Rosas Garcia Interpreting Provider: Rosas Garcia Consult Discharge Plan - Plan Instructions: Laparoscopic Cholecystectomy (DC) Additional Instructions: General Surgical Discharge Instructions 1. No pushing, pulling, or lifting greater than 15 lbs for 2-4 weeks (depending upon procedure). 2. You may shower beginning today, but no tub baths, soaking, or swimming for 2 weeks. 3. You may resume driving when you are off narcotics and are safe to react in a car. 4. Take ibuprofen every 8 hours for discomfort. If this does not relieve discomfort, you may take the as needed Percocet. Take narcotics as directed. Do not take more narcotics then directed and do not share your narcotics with any other person. Do not drink alcohol while on narcotics. 5. Take stool softeners (Colace) or a water based laxative (Miralax) while taking narcotics. You may hold for loose stools. 6. Report any fevers greater than 100.5F, increase abdominal discomfort, drainage that looks like pus, increased redness or pain at the surgical site, or any vomiting. 7. Report any pain in the calves, shortness of breath, or rapid heartbeat. 8. Follow-up in the office as directed. 9. If you were prescribed antibiotics, do not stop them without talking to your provider. Referrals: Joselo Loaiza MD [Family Provider] - Clarisse Odell CNP [Advanced Practice Nurse] - 06/22/18 8:30 am NONE,PCP [Primary Care Provider] - <Antwon De - Last Filed: 06/07/18 17:18> Hospitalist Progress Note - Encounter Date of Encounter: 06/06/18 - Exam Vitals: Temp Pulse Resp BP Pulse Ox 98.3 F 69 16 142/86 95 06/06/18 16:37 06/06/18 18:13 06/06/18 18:13 06/06/18 18:13 06/06/18 16:37 - Assessment and Plan (1) Acute cholecystitis Current Visit: Yes Status: Acute (2) Elevated troponin I level Current Visit: Yes Status: Acute (3) DVT prophylaxis Current Visit: Yes Status: Acute (4) CAD (coronary artery disease) Current Visit: Yes Status: Chronic (5) Tobacco abuse Current Visit: Yes Status: Chronic - Time Spent with Patient Total time spent is greater than 50% in coordination of care (as documented) at patient's floor/unit and/or counseling patient: Internal Medicine: Result - Labs CBC & Chem 7: 06/07/18 03:10 06/07/18 03:10 Labs: Short CBC 06/06/18 Range/Units 05:46 WBC 6.0 (4.3-11.1) K/mcL Hgb 12.5 L (12.9-16.9) g/dL Hct 37.6 (37.5-50.1) % Plt Count 94 L (140-400) K/mcL Neutrophils # 4.6 (1.6-8.9) K/mcL BMP 06/06/18 05:46 Sodium 133 L Potassium 3.9 Chloride 108 H Carbon Dioxide 23 BUN 18 Creatinine 0.74 Glucose 84 Calcium 8.0 L Liver Function 06/06/18 Range/Units 05:46 Total Bilirubin 0.7 (0.3-1.0) mg/dL AST 15 (13-39) Units/L ALT 9 (7-52) Units/L Alkaline Phosphatase 53 (34-104) Units/L Albumin 2.8 L (3.5-5.7) g/dL - ABG Interpretation ABG results: PT/INR, D-dimer PT 15.3 Seconds (9.4-12.1) H 06/05/18 04:07 - Attending Attestation The history, physical exam, and medical decision making was performed by the medical student either while I was physically present and actively involved or I personally re-performed the exam and medical decision making. I have verified the accuracy of the medical student's documentation with regards to the history, physical exam findings, and medical decision making on 06/06/18. Mr Alexander is currently admitted for cholecytitis and elevated troponin. He had LHC today and is to have cholecystectomy tomorrow. He remains moderate to high risk due to potential for worsening clinical status. Mr Alexander is doing OK post cath. No fever or chills. No upper abdomen pain. No diarrhea. Exam alert Comfortable Mucus membranes dry Heart not tachy No wheeze abd soft No edema I/P 1. Cholecystitis 2. CAD Further diagnoses and plan as above. <Antwon De - Last Filed: 06/07/18 17:18> (4) CAD (coronary artery disease) Qualifiers: Coronary Disease-Associated Artery/Lesion type: [place] artery [place] vs. transplanted heart: [place] heart Associated angina: without angina Qualified Code(s): I25.10 - Atherosclerotic heart disease of [place] coronary artery without angina pectoris
--- NOTE | 2018-06-06 14:19 | Pre-Sedation Evaluation ---
Pre-sedation evaluation - Pre-sedation checklist Date of procedure: 06/06/18 Procedure: heart cath Recent Vitals: Last Vital Signs Temp 98.1 F 06/06/18 11:45 Pulse 60 06/06/18 11:45 Resp 16 06/06/18 11:45 BP 161/81 06/06/18 11:45 Pulse Ox 98 06/06/18 11:45 H&P (including ROS) documented in medical record: Yes Previous reaction to sedatives/anesthetics: No Dietary Status: NPO after Midnight Dentition: No loose teeth or bridges ASA Classification *see protocol: CLASS II-Mild systemic disease Cardiac Registry (Cardio Only) - Functional Capacity Functional Capacity: >=4 METS with symptoms - Clincal Frailty Scale Clinical Frailty Scale: Vulnerable
[2018-06-06] MEDS ORDERED: *HR* FentaNYL (PF) 100 MCG/2 ML VIAL ONE (14:28)
[2018-06-06] MEDS ORDERED: *HR* Midazolam HCl 2 MG/2 ML VIAL ONE (14:28)
--- NOTE | 2018-06-06 15:32 | Invasive Diagnostic Lab Proc ---
Name: Rupal Alexander Date of Study: 06/06/2018 Date: 1945 Ht: 72.0in Medical Record#: [id number] Age: 73 Wt: 134.48lb Gender: Male BSA: 1.8 Order #: [id number] BMI: 18.21 Physicians Procedure Physician: Sara Mcnally MD Referring MD: Referring MD: Staff Name Position Time In RobbSilvia RN Monitor 02:34 PM Annmarie Mayo RN Maitre D 02:35 PM Kingston Fleming RT (R) Scrub 02:35 PM Indications Indication Unstable Angina Non-Stemi Procedures Performed Procedure CORONARY ARTERY ANGIO S&I Pre-Procedure Checklist Informed consent is complete signed and on chart. H&P is on chart. ID band is on and ID verified with patient. Patient NPO for procedure The procedure was described for the patient and questions were answered. ECG is on chart. Rhythm: Sr w/ bbb Plan of Care Patient will tolerate the procedure without complications. Adequate level of comfort will be maintained. Hemodynamics will remain stable Patient will recover from procedure without complications. Respiratory function will be maintained. Cardiac rhythm will remain stable. Patient temperature will be maintained. Patient and/or family have verbalized understanding of the procedure. Patient Education Chief Complaint/Reason for Test: Cardiac Cath Developmental Category: Geriatric (65+ years) Developmentally Appropriate for Age: Yes Learning Barriers: None Education Needs: Procedure Education Method: Verbal Information Taught: Cardiac Cath Educational Evaluation: Able to repeat information Intravenous Access Time IV Size Location DC'd Fluid/Drip Rate Units RN 20g 1 10/12" Patent On Arrival 0.9NaCl ml/hr Allergies Penicillins adhesive tape NO KNOWN ALLERGIES Vital Signs Time BP (mmHg) HR (bpm) O2 Sat. RR (bpm) LOC / % 5 = Fully awake and oriented or at pre-proc level 02:34 PM / % 5 = Fully awake and oriented or at pre-proc level 02:34 PM / % 4 = Oriented but drowsy 02:49 PM / % 4 = Oriented but drowsy 02:28 PM 149 / 77 74 95 % 25 02:32 PM 140 / 82 69 94 % 19 02:37 PM 130 / 78 67 94 % 16 02:42 PM 133 / 82 80 95 % 19 02:47 PM 111 / 73 81 94 % 18 02:53 PM 148 / 62 82 93 % 23 02:57 PM 130 / 76 73 94 % 12 03:02 PM 145 / 70 71 94 % 21 03:07 PM 143 / 77 69 % 18 03:12 PM 142 / 77 70 % 21 Procedural Medications Time Medication Dose Units Method Given By 02:34 PM Oxygen 2 L/min nasal cannula Annmarie Mayo RN 02:36 PM Versed 1 mg Intravenous Annmarie Maoy RN 02:36 PM Fentanyl 50 mcg Intravenous Annmarie Mayo RN 02:37 PM Lidocaine 2% 10 ml Subcutaneous Sara Mcnally MD 02:47 PM Nitroglycerin 100 mcg Intracoronary Marcial Mcnally MD 02:49 PM Nitroglycerin 100 mcg Intracoronary Marcial Mcnally MD 02:52 PM Nitroglycerin 200 mcg Intracoronary Marcial Mcnally MD ASA Classification: CLASS II- Mild systemic disease (i.e. well-controlled diabetes, hypertension, asthma, cigarette smoking) Josh Score Preprocedure Postprocedure Activity 2- Moves 4 extremities sustained head lift Activity 2- Moves 4 extremities sustained head lift Circulation 2- SBP +/= 20 points of pre-anesthetic level Circulation 2- SBP +/= 20 points of pre-anesthetic level Consciousness 2- Awake and alert oriented x 3 Consciousness 2- Awake and alert oriented x 3 O2 Saturation 2- Able to maintain O2 satruation of 92% on room air O2 Saturation 2- Able to maintain O2 satruation of 92% on room air Respiratory 2- Able to deep breathe and cough well Respiratory 2- Able to deep breathe and cough well Total Score 10 Total Score 10 Contrast Agent: Isovue Diagnostic Contrast: 89 ml Total Contrast: 89 ml Fluoro Dose: 435 mGy Procedure Log Time Note Enter By 02:26 PM CathStat 02:26 PM Vitals capture started with the following parameters, Patient=Adult, Interval=5 min, Initial Xlzecocx=489 mmHg, Deflation Rate=3 mmHg, Cuff placed on Right Arm 02:28 PM HR=74 bpm, BXRP=009/77 mmhg, SpO2=95.0 %, Resp=25 B/min 02:32 PM HR=69 bpm, XVIO=043/82 mmhg, SpO2=94.0 %, Resp=19 B/min, Comment=sr w bbb 02:32 PM Pressure channel 1 zeroed. 02:32 PM Reference ECG taken 02:34 PM Pt arrived to laboratory development technician 1 at 14:34 scoates 02:34 PM Physician arrived 14:34 scoates 02:34 PM ASA Class CLASS II- Mild systemic disease (i.e. well-controlled diabetes, hypertension, asthma, cigarette smoking) scoates 02:34 PM Meet and greet completed scoates 02:34 PM Sign in performed according to hospital policy. scoates 02:34 PM Procedure start 14:34 scoates 02:34 PM Time: 14:34 Oxygen on at 2 L/min per nasal cannula by Annmarie Mayo RN scoates 02:34 PM Time: 14:34 Patient comfortable and pain free: Yes scoates 02:34 PM Time: 14:34LOC: 5 = Fully awake and oriented or at pre-proc level scoates 02:35 PM Silvia Zamudio RN Position: Monitor Time in: 14:34 scoates 02:35 PM Annmarie Mayo RN Position: Maitre D Time in: 14:35 scoates 02:35 PM Kingston Fleming (R) Position: Scrub Time in: 14:35 scoates 02:35 PM Patient charges- Angio tray pack, Navilyst 3mm J, Pulse Oximetry and ACIST tubing and transducer scoates 02:36 PM Clinical Presentation: Non-STEMI scoates 02:36 PM Time: 14:36 Versed 1 mg Intravenous Given by Annmarie Mayo RN scoates 02:36 PM Time: 14:36 Fentanyl 50 mcg Intravenous Given by Annmarie Mayo RN scoates 02:37 PM Case Delayed no scoates 02:37 PM HR=67 bpm, KMLT=794/78 mmhg, SpO2=94.0 %, Resp=16 B/min, Comment=sr w bbb 02:37 PM Hair removed from procedure site in procedure lab using clippers. Bilateral groin prepped with Chloraprep by Annmarie Mayo RN, then patient was draped. Skin intact. scoates 02:37 PM Time out performed according to hospital policy scoates 02:37 PM Time: 14:37 10 ml Lidocaine 2% to right groin Subcutaneous Given by Sara Mcnally MD scoates 02:37 PM Micro-Introducer Kit utilized for sheath placement scoates 02:38 PM Access obtained by percutaneous puncture. 6Fr 11cm Terumo Hollins sheath placed in right Femoral artery. [id number] scoates 02:38 PM 5Fr FL 4 catheter inserted over the wire DNC scoates 02:38 PM Recorded Pressure: Ao, HR=69, Condition=Condition 1 (Aorta) Ao 150/74/106 02:38 PM LCA angiography performed in multiple views. scoates 02:40 PM Recorded Pressure: Ao, HR=69, Condition=Condition 1 (Aorta) Ao 148/73/105 02:41 PM Catheter removed scoates 02:41 PM 5Fr FR 4 catheter inserted over the wire DNC scoates 02:42 PM RCA angiography performed in multiple views. scoates 02:42 PM HR=80 bpm, FIPD=604/82 mmhg, SpO2=95.0 %, Resp=19 B/min, Comment=sr w bbb 02:47 PM HR=81 bpm, JHQD=529/73 mmhg, SpO2=94.0 %, Resp=18 B/min, Comment=sr w bbb 02:48 PM Time: 14:47 Nitroglycerin 100 mcg Intracoronary Given by Marcial Mcnally MD scoates 02:49 PM Time: 14:49 Nitroglycerin 100 mcg Intracoronary Given by Marcial Mcnally MD scoates 02:49 PM Time: 14:34LOC: 4 = Oriented but drowsy scoates 02:49 PM Time: 14:34 Patient comfortable and pain free: Yes scoates 02:50 PM Catheter removed scoates 02:50 PM 5Fr SRC catheter inserted over the wire [id number] scoates 02:53 PM HR=82 bpm, JCJC=418/62 mmhg, SpO2=93.0 %, Resp=23 B/min, Comment=sr w bbb 02:53 PM Time: 14:52 Nitroglycerin 200 mcg Intracoronary Given by Marcial Mcnally MD scoates 02:53 PM RCA angiography performed in multiple views. scoates 02:54 PM Catheter removed scoates 02:54 PM 5Fr Pigtail catheter inserted over the wire DNC scoates 02:55 PM Catheter removed scoates 02:57 PM HR=73 bpm, TXNF=873/76 mmhg, SpO2=94.0 %, Resp=12 B/min, Comment=sr w bbb 02:57 PM Procedure completed at 14:57 06/06/2018 scoates 02:58 PM Sign out completed: Radiation Dose 7.1 mGy, 435 cGy/cm2 Fluoro Time: 7.1 Isovue 370 - 200ml contrast 89 ml given by Sara Mcnally MD. Complications: NoneCardiac Rehab Consult needed: NoConfirmed administered medications: Yes scoates 03:01 PM Isovue 370 - 200ml,1 Bottle(s) used. scoates 03:02 PM HR=71 bpm, IGEA=322/70 mmhg, SpO2=94.0 %, Resp=21 B/min, Comment=sr w bbb 03:03 PM Arterial sheath pulled using manual compression and V+ Pad for 15 minutes by Natividad Brooks RT (R) scoates 03:04 PM Estimated Blood Loss: minimal scoates 03:05 PM Time: 14:49 Patient comfortable and pain free: Yes scoates 03:05 PM Time: 14:49LOC: 4 = Oriented but drowsy scoates 03:05 PM Post ECG Sr w/ bbb scoates 03:05 PM Post Blood Pressure 145/70 scoates 03:07 PM Information taught Cardiac Cath scoates 03:07 PM Education needs Plan of Care, Procedure, and Responsibilities of Patient in Care scoates 03:07 PM Learning barriers :None scoates 03:07 PM Education Methods Verbal scoates 03:07 PM Education evaluation Able to repeat information scoates 03:07 PM HR=69 bpm, KYWH=307/77 mmhg, Resp=18 B/min, Comment=sr w bbb 03:07 PM Post Blood Pressure 143/77 scoates 03:08 PM 15:07 Post Pulses Bilateral DP & PT 2+ scoates 03:09 PM Education evaluation Able to repeat information scoates 03:09 PM Plavix, Effient or Brilinta given No scoates 03:09 PM Delay to floor No scoates 03:09 PM Complications: None scoates 03:10 PM Complications: None scoates 03:10 PM Family placed in Not present. scoates 03:12 PM Site status No bleeding/hematoma - Rt Groin as reported by Natividad Brooks RT (R) at 15:11 scoates 03:12 PM Opsite applied scoates 03:12 PM HR=70 bpm, XGYR=458/77 mmhg, Resp=21 B/min 03:15 PM Coronary Dominance: Left scoates 03:15 PM Lesion found in Mid LMCA. Pre Stenosis: 25 Pre MICHEAL Flow: scoates 03:16 PM Lesion found in Proximal Circumflex. Pre Stenosis: 40 Pre MICHEAL Flow: scoates 03:16 PM Lesion found in Mid LAD. Pre Stenosis: 50 Pre MICHEAL Flow: scoates 03:17 PM Lesion found in Ramus. Pre Stenosis: 70 Pre MICHEAL Flow: scoates 03:18 PM Left Main Coronary Artery with 25% stenosis scoates 03:18 PM Mid/Distal Left Anterior Descending Coronary Artery and diagonal branches with 50% stenosis. If graft is supplying this area, 0 % stenosis scoates 03:18 PM Circumflex, Obtuse Marginal, Left Posterior Descending, and Left Posterolateral Coronary Arteries with 40 % stenosis. If graft is supplying this area, 0 % stenosis scoates 03:18 PM Ramus with 70% stenosis. If graft is supplying this area, 0 % stenosis scoates 03:19 PM Report given to E nurse Pt taken to [facility] Room #22. 15:19 scoates 03:19 PM Delay to floor No scoates Complications Complication None None None Hemodynamics Pressures Site Systolic/A Wave Diastolic/V Wave Mean AO 150 74 106 AO 148 73 105 Post Procedure Information Blood Pressure: 143/77 mmHg Rhythm: Sr w/ bbb Post procedural instructions were given Closure Device Time Device Success/Fail 06/06/2018 3:20:00 PM Manual Compression Successful Site Checks Time Location Status Staff Sheath In? Note 03:11 PM Rt Groin No bleeding/hematoma Natividad Brooks RT (R) Pulses Time Site Pre-Procedure Post-Procedure Note Bilateral DP & PT 2+ Bilateral radial 2+ 3:07:00 PM Bilateral DP & PT 2+ Updated by Silvia Rangel RN on 06/06/2018 3:27:14 PM electronically signed on 06/06/2018 3:27:45 PM with status of Final
--- NOTE | 2018-06-06 16:43 | Event Note ---
Date of Encounter: 06/06/18 Time of Encounter: 16:41 - Cardiology Event Note [facility] completed. Discussed with Dr. Mcnally, no high grade lesions seen. Seen to have 70% stenosis in the pRamus that can be intervented on at later time to allow for cholecystectomy off plavix. He is moderate risk for surgery.
--- NOTE | 2018-06-06 20:36 | Anesthesia Evaluation PreOp ---
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) Other Medical History: Denies Any Significant HX Anesthesia History: No Prior Anesthetic Complications Alcohol Use: none Drug use: none Medications and Allergies Aspirin [Lo-Dose Aspirin EC] 81 mg PO DAILY 06/04/18 [History] 3 Allergy/AdvReac Type Severity Reaction Status Date / Time adhesive tape Allergy Rash Verified 06/04/18 17:55 Penicillins Allergy Hives Verified 06/04/18 17:55 - Meds/Allergy Pre-op Review Medications Reviewed: Yes Allergies Reviewed: Yes Anesthesia Results - Labs 06/06/18 05:46 06/06/18 05:46 - Imaging EKG: report reviewed (SR Left [place] Dev, Left BBB) Additional studies: ECHO EF 45%, LHC showed no high grade lesion per cardiology Anesthesia Exam O2 Sat Weight 61.2 kg O2 Sat by Pulse Oximetry 95 O2 Sat by Pulse Oximetry 95 O2 Sat by Pulse Oximetry 98 O2 Sat by Pulse Oximetry 96 O2 Sat by Pulse Oximetry 95 O2 Sat by Pulse Oximetry 97 Vital Signs Pulse Resp BP Pulse Ox 81 15 135/71 95 06/04/18 22:44 06/04/18 22:44 06/04/18 22:44 06/04/18 22:44 Height: 6'0 Weight: 134 lbs NPO (# of Hours): MN Pain Scale: 0 - HEENT Pupil (Motor): Pupils equal, EOMI Mallampati: II Teeth: Normal Oral Opening: Greater than 3 - APPLIED [employer]INE PH[employer] PROFESSOR LOC: Oriented AP[employer]INE PH[employer] PROFESSOR Motor: Normal RUE, Normal RLE, Normal LLE, Normal Face, Deficit LUE (CVA) APPLIED [employer]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
[2018-06-07 04:09] LABS: Basophils % 0.2 %; Eosinophils % 0.7 %; Hematocrit 36.2 % (37.5-50.1); Hemoglobin 12.3 g/dL (12.9-16.9); Immature Granulocytes % 0.3 % (0-4); Lymphocytes # 1.1 K/mcL (0.6-4.6); Lymphocytes % 19.2 %; Mean Corpuscular Hemoglobin 31.5 pg (28.0-33.3); Mean Corpuscular Volume 92.8 fL (83.0-100.0); Mean Platelet Volume 10.4 fL (9.4-12.4); Monocytes # 0.3 K/mcL (0.0-1.3); Monocytes % 5.9 %; Neutrophils # 4.2 K/mcL (1.6-8.9); Platelet Count 110 K/mcL (140-400); Red Cell Distribution Width 14.5 % (11.5-14.5); Segmented Neutrophils % 73.7 %
[2018-06-07 04:15] LABS: INR 1.2; Prothrombin Time 13.8 Seconds (9.4-12.1)
[2018-06-07 04:29] LABS: BUN/Creatinine Ratio 19 (6-26); Blood Urea Nitrogen 11 mg/dL (8-23); Calcium 8.1 mg/dL (8.6-10.3); Carbon Dioxide 22 mEq/L (23-29); Chloride 107 mEq/L (98-107); Glucose 82 mg/dL (70-105); Osmolality,Calculated 276 (280-300); Potassium 3.5 mEq/L (3.5-5.1); Sodium 134 mEq/L (136-145); eGFR For Non-African Americans > 60 (> 60)
[2018-06-07] MEDS: 0.9 % Sodium Chloride 1,000 ML IVC SCH ×3 (05:35→12:47)
[2018-06-07] MEDS: *HR* Heparin 5,000 UNIT/ML VIAL SQ SCH (05:36)
[2018-06-07] MEDS ORDERED: *HR* FentaNYL (PF) 100 MCG/2 ML VIAL ONE ×2 (07:59→10:31)
[2018-06-07] MEDS ORDERED: *HR* Rocuronium Bromide 50 MG/5 ML VIAL ONE (07:59)
[2018-06-07] MEDS ORDERED: Lidocaine -MPF 2% 2 ML VIAL ONE (07:59)
[2018-06-07] MEDS ORDERED: *HR* Propofol 200 MG/20 ML VIAL IVP ONE (07:59)
[2018-06-07] MEDS ORDERED: Lidocaine -MPF 4% 5 ML AMPUL ONE (08:00)
[2018-06-07] MEDS: MetroNIDAZOLE 500 MG/100 ML 500 MG/100 ML BAG IVPB SCH ×2 (08:10→15:39)
[2018-06-07] MEDS ORDERED: Isovue-300 50 ML VIAL IVP ONE (09:15)
[2018-06-07] MEDS ORDERED: Clindamycin 600 MG/50 ML 600 MG/50 ML IV.SOLN IVPB ONE ×2 (09:22→09:55)
[2018-06-07] MEDS ORDERED: *HR* PHENYLEPHRINE 1,000 MCG/10 ML SYRINGE IVP ONE (09:38)
[2018-06-07] MEDS ORDERED: Ondansetron 4 MG/2 ML VIAL ONE (09:52)
[2018-06-07] MEDS ORDERED: *HR* HYDROmorphone (PF) 1 MG/ML SYRINGE IVP PRN (10:05)
[2018-06-07] MEDS ORDERED: Ondansetron 4 MG/2 ML VIAL IVP PRN ×2 (10:05→11:56)
[2018-06-07] MEDS ORDERED: *HR* Labetalol 100 MG/20 ML MDV IVP PRN (10:05)
[2018-06-07] MEDS ORDERED: *HR* Acetaminophen w/Cod 300-30 mg 1 TAB TABLET PO PRN (10:07)
[2018-06-07] MEDS ORDERED: Neostigmine Methylsulfate 3 MG/3 ML SYRINGE ONE (10:34)
[2018-06-07] MEDS ORDERED: Ketorolac 30 MG/ML VIAL ONE (10:35)
--- NOTE | 2018-06-07 10:52 | Operative Note ---
Date of procedure: 06/07/18 Pre-op diagnosis: symptomatic cholelithiasis Post-op diagnosis: other (acute cholecystitis) Procedure: laparoscopic cholecystectomy Complications: none immediate Anesthesia: JV local Surgeon: Arabella Edge Was there an library technical assistant present: No Donor Services Technician Other: Zeferino Herrera Estimated blood loss (cc): 25 Specimen: gallbladder and contents Condition: stable Disposition: PACU Procedure in Detail: The patient was brought into the operating suite and placed supine on the operating table. Sign-in was performed and everyone was in agreement. Anesthesia was induced and patient was endotracheally intubated by anesthesia without incident and they also placed an OG tube. The abdomen was prepped and draped in the usual sterile fashion. A timeout was performed again everyone was in agreement. A transumbilical incision at site of scar was made through the skin into the subcutaneous tissue with an 11 blade. Towel clamps were placed on either side of the umbilicus for retraction. S retractors were used to dissect down to the anterior abdominal wall linea alba fascia. A 12 mm port was placed within the abdomen and the abdomen was insufflated. The area and entry was visualized was no bleeding and no apparent bowel injury. A 5 mm subxiphoid port was placed under direct visualization after first incising the skin with an 11 blade. A right upper quadrant subcostal position midclavicular line 5 mm port was placed under direct visualization after first incising skin with 11 blade. The last 5 mm port was placed in the right upper quadrant subcostal position anterior axillary line after first incising the skin with an 11 blade. The patient was placed in steep reverse Trendelenburg left side down position. The omentum was densley adhesed to the gallbladder which was taken down with gentle blunt dissection and heated hook. The dome of the gallbladder was grasped and retracted cephalad. Omental adhesions to the body and infundibulum of the gallbladder were taken down bluntly with the [place]. The infundibulum was grasped and retracted laterally. Using the [place] we dissected out the cystic duct and cystic artery. Two 5 mm hemoclips were placed distally on the cystic duct one proximally and it was transected with curved scissors. The cystic artery was doubly clipped proximally, once distally and transected with curved scissors. The gallbladder was removed off the cystic plate with the Bovie. Any bleeding points were stopped with the Bovie. The gallbladder was placed in a laparoscopic Endo Catch bag and removed via the supraumbilical incision site. The inferior edge of the liver was bluntly retracted cephalad and the cystic plate was copiously irrigated with sterile saline. There was no obvious bleeding or apparent bile leak from the cystic plate and the clips on the cystic artery and duct were intact. All irrigation was suctioned free from the abdomen. All insufflation was suctioned free from the abdomen and the ports removed. The abdominal wall at the supraumbilical incision site was closed with three 0 Vicryl [id number] stitch. 30 mL of 0.5% Marcaine was injected subcutaneously at the 4 port sites. The skin at the three 5 mm port sites were closed with 4-0 Monocryl interrupted subcuticular stitches. The skin at the supraumbilical incision site was closed with a 4-0 Monocryl running subcuticular stitch. Steri-Strips were applied to all wounds. The patient was awoken in the operating suite having tolerated the procedure well and were taken to PACU in stable condition after all lap and instrument counts were correct at the end of the case.
--- NOTE | 2018-06-07 11:46 | Anesthesia Evaluation Post Op ---
Date of Encounter: 06/07/18 Time of Encounter: 11:45 - Vital Signs Vital Signs: Vital Signs/O2 Sat, Most Current Temp Pulse Resp BP Pulse Ox 97.9 F 58 16 160/78 91 06/07/18 11:36 06/07/18 11:36 06/07/18 11:36 06/07/18 11:36 06/07/18 11:36 - Lungs Lungs: Clear Ascult./Percussion - Airway Airway: Non-obstructed - Cardiovascular Regular Rate - Mental Status Mental Status: Alert & Oriented, Answers Appropriately - Pain Pain Scale: 3 Pain Scale used: Numeric (1 - 10) - Nausea Vomiting Nausea Vomiting: Not Present - Hydration Hydration: NPO, Has not voided - Discharge PostOp Status: Transfer Patient to floor
[2018-06-07] MEDS ORDERED: MORPHINE SUL Oral CONC 10 MG/0.5 ML ORAL.SYG SL PRN (11:56)
[2018-06-07] MEDS ORDERED: *HR* OxyCODONE/APAP 5/325 TABLET PO PRN (11:56)
[2018-06-07] MEDS ORDERED: Naloxone 0.4 MG/ML INJ IVP PRN (11:56)
[2018-06-07] MEDS: Nicotine 7 MG PATCH.TD24 TD SCH (12:46)
--- NOTE | 2018-06-07 13:08 | Event Note ---
Date of Encounter: 06/07/18 Time of Encounter: 13:06 Event note placed for DC planning. - Patient Status Disposition: Still a Patient Condition: Good Functional capacity at discharge: independent ambulation - Discharge Instructions Instructions: Laparoscopic Cholecystectomy (DC) Follow Up With: Joselo Loaiza MD [Family Provider] - NONE,PCP [Primary Care Provider] - Clarisse Odell CNP [Advanced Practice Nurse] - 06/22/18 8:30 am Additional Instructions: General Surgical Discharge Instructions 1. No pushing, pulling, or lifting greater than 15 lbs for 2-4 weeks (depending upon procedure). 2. You may shower beginning today, but no tub baths, soaking, or swimming for 2 weeks. 3. You may resume driving when you are off narcotics and are safe to react in a car. 4. Take ibuprofen every 8 hours for discomfort. If this does not relieve discomfort, you may take the as needed Percocet. Take narcotics as directed. Do not take more narcotics then directed and do not share your narcotics with any other person. Do not drink alcohol while on narcotics. 5. Take stool softeners (Colace) or a water based laxative (Miralax) while taking narcotics. You may hold for loose stools. 6. Report any fevers greater than 100.5F, increase abdominal discomfort, drainage that looks like pus, increased redness or pain at the surgical site, or any vomiting. 7. Report any pain in the calves, shortness of breath, or rapid heartbeat. 8. Follow-up in the office as directed. 9. If you were prescribed antibiotics, do not stop them without talking to your provider. - Diet and Activity Activity: increase activity as tolerated Diet: advance to your usual diet
--- NOTE | 2018-06-07 13:37 | Cardiology Progress Note ---
Date of Encounter: 06/07/18 Time of Encounter: 13:35 Assessment and Plan (1) CAD (coronary artery disease) Current Visit: Yes Status: Chronic Diagnostic LHC revealed 70% stenosis in the proximal ramus and moderate disease otherwise. Medical management recommended to allow for surgery. Out-pt PCI recommended. No problem noted with right femoral access site. Asa, statin, and bb. Out-pt f/u will be coordinated with [facility]. Qualifiers: Coronary Disease-Associated Artery/Lesion type: [place] artery [place] vs. transplanted heart: [place] heart Associated angina: without angina Qualified Code(s): I25.10 - Atherosclerotic heart disease of [place] coronary artery without angina pectoris (2) LBBB (left bundle branch block) Current Visit: Yes Status: Acute EKG shows sinus bradycardia, HR 59 bpm. LBBB. Prior EKG from 2014 reviewed and shows LBBB. This is not a new finding. (3) Elevated troponin I level Current Visit: Yes Status: Acute Mild troponin elevation up to 0.25 in the setting of acute cholecystitis. C/o chest pain yesterday that occurred after vomiting and relieved with 7-up. Likely GI related. He can complete moderate activity without anginal symptoms. Cardiac risk factors include family history (twin brother with OHS), tobacco use , and HTN. TTE did reveal reduced EF at 45%. LHC recommended prior to surgery. Diagnostic LHC revealed 70% pRamus stenosis and moderate LAD disease. No high risk lesions seen. Patient proceeded with cholecystectomy today. No complications. Asa, statin, and bb recommended. (4) Cardiomyopathy Current Visit: Yes Status: Acute Mild ischemic cardiomyoapthy. EF 45%. Last TTE several years ago showed preserved EF. Currently euvolemic. Caution with IV fluid given roberto-procedure. Discussed with nurse, she will monitor symptoms closely. Noted cough. Patient states he had cough before when he is anxious. No rales/crackles on exam. CHF education. BB/aceI recommended. Qualifiers: Cardiomyopathy type: ischemic Qualified Code(s): I25.5 - Ischemic cardiomyopathy Discussion w patient/family: The assessment and plan as outlined above was discussed with the patient and/or family members who expressed understanding and agreement. All questions were answered. Thank you for involving us in the care of your patient. Please call with any questions. Subjective Principal diagnosis: Acute cholecystitis, New CMP, CAD Interval history: Mr. Alexander is s/p laparoscopic cholecystectomy. No complications during procedure. No problem noted with right groin access site. Objective Vital Signs, Last 4 Hours Temp Pulse Resp BP Pulse Ox 06/07/18 13:05 97.9 F 76 16 171/96 06/07/18 12:37 97.8 F 71 16 136/87 06/07/18 12:20 62 16 167/81 06/07/18 12:05 72 16 166/95 06/07/18 11:57 97.7 F 67 16 167/79 93 06/07/18 11:36 97.9 F 58 16 160/78 91 06/07/18 11:26 97.9 F 63 18 163/94 92 06/07/18 11:16 62 18 157/79 92 06/07/18 11:06 77 16 166/87 92 06/07/18 10:56 97.8 F 64 16 160/84 98 General: Conversant, No Apparent Distress HEENT: Atraumatic, Normocephaly, Mucus Membranes Moist Neck: No JVD, Normal carotid pulses Cardiac: Reg Rate and Rhythm, Normal S1 and S2, No Murmur Lungs: Other (Respirations easy, continuious cough noted. No rales or rhonci. ) Neuro: Alert and responsive, No focal deficits noted Abdomen: Soft, Other (Tender with laproscopic incisions well approximated. ) Skin: No rashes noted on visualized skin Musculoskeletal: No Chest Wall Tenderness Extremities: No Clubbing, No Cyanosis, No Edema, Normal Pulses Results 06/07/18 03:10 06/07/18 03:10 Lab Results 06/07/18 06/07/18 06/07/18 03:10 03:10 03:10 WBC 5.7 Hgb 12.3 L Hct 36.2 L Plt Count 110 L INR 1.2 APTT Sodium 134 L Potassium 3.5 Chloride 107 Carbon Dioxide 22 L BUN 11 Creatinine 0.59 L Glucose 82 Calcium 8.1 L 06/07/18 03:10 WBC Hgb Hct Plt Count INR APTT 29.2 Sodium Potassium Chloride Carbon Dioxide BUN Creatinine Glucose Calcium - Imaging and Cardiology Echo: report reviewed Cardiac cath: report reviewed - EKG Interpretation EKG results cardiology: personally reviewed - VTE Documentation of Mechanical Device: Intermittent pneumatic compression device Consult Discharge Plan - Plan Instructions: Laparoscopic Cholecystectomy (DC) Additional Instructions: General Surgical Discharge Instructions 1. No pushing, pulling, or lifting greater than 15 lbs for 2-4 weeks (depending upon procedure). 2. You may shower beginning today, but no tub baths, soaking, or swimming for 2 weeks. 3. You may resume driving when you are off narcotics and are safe to react in a car. 4. Take ibuprofen every 8 hours for discomfort. If this does not relieve discomfort, you may take the as needed Percocet. Take narcotics as directed. Do not take more narcotics then directed and do not share your narcotics with any other person. Do not drink alcohol while on narcotics. 5. Take stool softeners (Colace) or a water based laxative (Miralax) while taking narcotics. You may hold for loose stools. 6. Report any fevers greater than 100.5F, increase abdominal discomfort, drainage that looks like pus, increased redness or pain at the surgical site, or any vomiting. 7. Report any pain in the calves, shortness of breath, or rapid heartbeat. 8. Follow-up in the office as directed. 9. If you were prescribed antibiotics, do not stop them without talking to your provider. Referrals: Joselo Loaiza MD [Family Provider] - Clarisse Odell CNP [Advanced Practice Nurse] - 06/22/18 8:30 am NONE,PCP [Primary Care Provider] -
--- NOTE | 2018-06-07 18:49 | Internal Med Progress Note ---
<Villa Robertson - Last Filed: 06/07/18 19:39> Hospitalist Progress Note - Encounter Date of Encounter: 06/07/18 Time of Encounter: 10:20 - Subjective Interval History: Mr. Alexander continues to deny chest discomfort, fever, shortness of breath. Discussing questions about lap tamiko, plan for OR today. - Exam Vitals: Temp Pulse Resp BP Pulse Ox 97.7 F 68 14 154/83 95 06/07/18 14:35 06/07/18 15:32 06/07/18 15:32 06/07/18 15:32 06/07/18 15:32 Exam: General: alert and oriented x 3 CV: RRR, no murmurs Resp: diffuse rhonci bilaterally GI: tender RLQ and right inguinal area, bowel sounds x 4, negative Yang sign Ext: no pedal edema Neuro: paralysis and contracture of of LUE, left wrist and fingers, sensation intact - Assessment and Plan (1) Acute cholecystitis Current Visit: Yes Status: Acute Assessment and Plan: U/S showed equivocal cholecystitis; negative yang's by [employer] afebrile, normal WBCs continuing cipro/flagyl HIDA scan shows possible chronic cholecystitis Lap Tamiko 06/[address] Edge (2) Elevated troponin I level Current Visit: Yes Status: Acute Assessment and Plan: TTE did reveal reduced EF at 45%. LHC performed prior to surgery. Diagnostic LHC revealed 70% pRamus stenosis and moderate LAD disease. No high risk lesions seen. Asa, statin, and bb recommended. Outpatient PCI possible; f/u with [facility] outpatient planned. (3) LBBB (left bundle branch block) Current Visit: Yes Status: Acute (4) Cardiomyopathy Current Visit: Yes Status: Acute Assessment and Plan: EF of 45% compared to preserved several years ago. (5) DVT prophylaxis Current Visit: Yes Status: Acute Assessment and Plan: Heparin sq - Time Spent with Patient Total time spent is greater than 50% in coordination of care (as documented) at patient's floor/unit and/or counseling patient: Internal Medicine: Result - Labs CBC & Chem 7: 06/07/18 03:10 06/07/18 03:10 Labs: Short CBC 06/07/18 Range/Units 03:10 WBC 5.7 (4.3-11.1) K/mcL Hgb 12.3 L (12.9-16.9) g/dL Hct 36.2 L (37.5-50.1) % Plt Count 110 L (140-400) K/mcL Neutrophils # 4.2 (1.6-8.9) K/mcL BMP 06/07/18 03:10 Sodium 134 L Potassium 3.5 Chloride 107 Carbon Dioxide 22 L BUN 11 Creatinine 0.59 L Glucose 82 Calcium 8.1 L - ABG Interpretation ABG results: PT/INR, D-dimer PT 13.8 Seconds (9.4-12.1) H 06/07/18 03:10 - VTE Documentation of Mechanical Device: Intermittent pneumatic compression device Consult Discharge Plan - Plan Instructions: Laparoscopic Cholecystectomy (DC) Additional Instructions: General Surgical Discharge Instructions 1. No pushing, pulling, or lifting greater than 15 lbs for 2-4 weeks (depending upon procedure). 2. You may shower beginning today, but no tub baths, soaking, or swimming for 2 weeks. 3. You may resume driving when you are off narcotics and are safe to react in a car. 4. Take ibuprofen every 8 hours for discomfort. If this does not relieve discomfort, you may take the as needed Percocet. Take narcotics as directed. Do not take more narcotics then directed and do not share your narcotics with any other person. Do not drink alcohol while on narcotics. 5. Take stool softeners (Colace) or a water based laxative (Miralax) while taking narcotics. You may hold for loose stools. 6. Report any fevers greater than 100.5F, increase abdominal discomfort, drainage that looks like pus, increased redness or pain at the surgical site, or any vomiting. 7. Report any pain in the calves, shortness of breath, or rapid heartbeat. 8. Follow-up in the office as directed. 9. If you were prescribed antibiotics, do not stop them without talking to your provider. Referrals: Joselo Loaiza MD [Family Provider] - Clarisse Odell CNP [Advanced Practice Nurse] - 06/22/18 8:30 am NONE,PCP [Primary Care Provider] - <Antwon De - Last Filed: 06/07/18 19:52> Hospitalist Progress Note - Encounter Date of Encounter: 06/07/18 - Exam Vitals: Temp Pulse Resp BP Pulse Ox 97.7 F 68 14 154/83 95 06/07/18 14:35 06/07/18 15:32 06/07/18 15:32 06/07/18 15:32 06/07/18 15:32 - Assessment and Plan (1) Acute cholecystitis Current Visit: Yes Status: Acute (2) Elevated troponin I level Current Visit: Yes Status: Acute (3) DVT prophylaxis Current Visit: Yes Status: Acute (4) CAD (coronary artery disease) Current Visit: Yes Status: Chronic (5) Tobacco abuse Current Visit: Yes Status: Chronic (6) Moderate protein-calorie malnutrition Current Visit: Yes Status: Chronic - Time Spent with Patient Total time spent is greater than 50% in coordination of care (as documented) at patient's floor/unit and/or counseling patient: Internal Medicine: Result - Labs CBC & Chem 7: 06/07/18 03:10 06/07/18 03:10 Labs: Short CBC 06/07/18 Range/Units 03:10 WBC 5.7 (4.3-11.1) K/mcL Hgb 12.3 L (12.9-16.9) g/dL Hct 36.2 L (37.5-50.1) % Plt Count 110 L (140-400) K/mcL Neutrophils # 4.2 (1.6-8.9) K/mcL BMP 06/07/18 03:10 Sodium 134 L Potassium 3.5 Chloride 107 Carbon Dioxide 22 L BUN 11 Creatinine 0.59 L Glucose 82 Calcium 8.1 L - ABG Interpretation ABG results: PT/INR, D-dimer PT 13.8 Seconds (9.4-12.1) H 06/07/18 03:10 - Attending Attestation I examined this patient and my medical decision-making was reviewed with the Resident Physician on 06/07/18. I agree with the documented findings, disposition and treatment plan as described except to the extent set forth below. Mr Alexander is currently admitted for acute cholecystitis and CAD. He is going to OR today. He remains moderate to high risk due to potential for worsening clinical status. Mr Alexander just returned from OR. He is feeling OK. No fever or chills. He is hungry. Exam alert Comfortable Mucus membranes dry Heart reg No wheeze Abd distended No edema I/P 1. Cholecystitis - OR today 2. CAD Further diagnoses and plan as above. <Villa Robertson - Last Filed: 06/07/18 19:39> (4) Cardiomyopathy Qualifiers: Cardiomyopathy type: ischemic Qualified Code(s): I25.5 - Ischemic cardiomyopathy <Antwon De - Last Filed: 06/07/18 19:52> (4) CAD (coronary artery disease) Qualifiers: Coronary Disease-Associated Artery/Lesion type: [place] artery [place] vs. transplanted heart: [place] heart Associated angina: without angina Qualified Code(s): I25.10 - Atherosclerotic heart disease of [place] coronary artery without angina pectoris
[2018-06-08] MEDS: MetroNIDAZOLE 500 MG/100 ML 500 MG/100 ML BAG IVPB SCH ×2 (00:45→08:48)
[2018-06-08 04:31] LABS: Basophils % 0.1 %; Eosinophils % 0.1 %; Hematocrit 34.9 % (37.5-50.1); Hemoglobin 11.8 g/dL (12.9-16.9); Immature Granulocytes % 0.4 % (0-4); Lymphocytes # 1.1 K/mcL (0.6-4.6); Mean Corpuscular HGB Conc 33.8 g/dL (31.6-35.5); Mean Corpuscular Volume 91.6 fL (83.0-100.0); Monocytes # 0.4 K/mcL (0.0-1.3); Monocytes % 6.2 %; Neutrophils # 5.6 K/mcL (1.6-8.9); Platelet Count 112 K/mcL (140-400); Red Blood Count 3.81 M/mcL (4.19-5.50); Red Cell Distribution Width 14.6 % (11.5-14.5); Segmented Neutrophils % 78.2 %
[2018-06-08 04:52] LABS: Alanine Aminotransferase 16 Units/L (7-52); Albumin 2.8 g/dL (3.5-5.7); Alkaline Phosphatase 48 Units/L (34-104); Aspartate Amino Transferase 34 Units/L (13-39); BUN/Creatinine Ratio 15 (6-26); Bilirubin,Direct 0.2 mg/dL (0.0-0.2); Bilirubin,Indirect 0.3 mg/dL (0.0-1.2); Bilirubin,Total 0.5 mg/dL (0.3-1.0); Blood Urea Nitrogen 11 mg/dL (8-23); Calcium 8.2 mg/dL (8.6-10.3); Carbon Dioxide 24 mEq/L (23-29); Chloride 105 mEq/L (98-107); Globulin 2.8 g/dL (2.4-3.5); Glucose 126 mg/dL (70-105); Osmolality,Calculated 279 (280-300); Potassium 3.4 mEq/L (3.5-5.1); Sodium 134 mEq/L (136-145); Total Protein 5.6 g/dL (6.4-8.9); eGFR For Non-African Americans > 60 (> 60)
[2018-06-08] MEDS: 0.9 % Sodium Chloride 1,000 ML IVC SCH ×2 (05:00→15:20)
[2018-06-08] MEDS ORDERED: Aspirin 81 MG TAB.CHEW PO SCH (09:00)
[2018-06-08] MEDS ORDERED: Nicotine 7 MG PATCH.TD24 TD SCH (09:00)
--- NOTE | 2018-06-08 09:10 | General Surgery Progress Note ---
<Artis Perez R - Last Filed: 06/08/18 09:12> Date of Encounter: 06/08/18 Time of Encounter: 08:00 - Assessment and Plan (1) Acute cholecystitis Current Visit: Yes Status: Acute POD #1 S/P laparoscopic cholecystectomy with Dr. Edge Patient doing well postoperatively, incisions clean and dry. Plan: Cardiac diet 5 days antibiotic therapy will see patient in out-patient follow up Surgery will sign off at this time (2) Elevated troponin I level Current Visit: Yes Status: Acute Outpatient follow up with cardiology per their recommendations Subjective Patient reports: no new complaints, feels better, voiding w/o difficulty, flatus , bowel movement, afebrile Narrative: Patient seen and evaluated at bedside this morning. Patient states that he is feeling well. Postsurgical pain well-controlled. Reports eating broth and grahm crackers last night. Denies nausea or vomiting. Has had loose bowel movement and is passing flatus. Patient denies difficulty with ambulation. Objective Vital Signs - Last 8 Hours Temp Pulse Resp BP Pulse Ox 06/08/18 07:08 97.6 F 62 159/77 88 06/08/18 04:36 98.1 F 64 18 135/74 94 Intake and Output 06/07/18 06/08/18 06/08/18 23:59 07:59 15:59 Intake Total 450 / 450 1150 / 1150 Output Total 200 / 200 Balance 250 / 250 1150 / 1150 Intake: IV Fluids 300 / 300 1100 / 1100 0.9 % Sodium Chloride 1,000 ML 1000 / 1000 @ 80 mls/hr IVC .[id number] [facility] Rx #:[id number] Cipro Premix 400 MG/200 ML 400 200 / 200 mg In 200 ml @ 200 mls/hr IVPB Q12HR [facility] Rx#:[id number] Flagyl Premix 500 MG/100 ML 500 100 / 100 100 / 100 mg In 100 ml @ 100 mls/hr IVPB Q8HR [facility] Rx#:[id number] Oral 150 / 150 50 / 50 Output: Urine 200 / 200 Other: Stool Size Large Stool Consistency loose Stool Color Brown # Voids 0 0 # Bowel Movements 1 Weight 61.2 kg - General physical appearance no distress, no pain - Eyes PERRL, normal ocular movement - ENT atraumatic, normocephalic - Neck Neck exam: trachea midline - Respiratory clear to auscultation - Cardiovascular Cardiovascular exam: Present: RRR - Abdomen Abdomen: Present: bowel sounds present, soft, tender (Postsurgical tenderness). Absent: guarding, rigid - Incision Incision: Present: clean and dry, intact - Integumentary no rash - Neurologic CN 2-12 grossly intact - Psychiatric oriented to time, oriented to person, oriented to place, speech is normal - Labs 06/08/18 04:08 06/08/18 04:08 Diabetes panel 06/08/18 Range/Units 04:08 Sodium 134 L (136-145) mEq/L Potassium 3.4 L (3.5-5.1) mEq/L Chloride 105 (98-107) mEq/L Carbon Dioxide 24 (23-29) mEq/L BUN 11 (8-23) mg/dL Creatinine 0.75 (0.70-1.30) mg/dL Glucose 126 H (70-105) mg/dL Calcium 8.2 L (8.6-10.3) mg/dL AST 34 (13-39) Units/L ALT 16 (7-52) Units/L Alkaline Phosphatase 48 (34-104) Units/L Albumin 2.8 L (3.5-5.7) g/dL Calcium panel 06/08/18 Range/Units 04:08 Calcium 8.2 L (8.6-10.3) mg/dL Albumin 2.8 L (3.5-5.7) g/dL Pituitary panel 06/08/18 Range/Units 04:08 Sodium 134 L (136-145) mEq/L Potassium 3.4 L (3.5-5.1) mEq/L Chloride 105 (98-107) mEq/L Carbon Dioxide 24 (23-29) mEq/L BUN 11 (8-23) mg/dL Creatinine 0.75 (0.70-1.30) mg/dL Glucose 126 H (70-105) mg/dL Calcium 8.2 L (8.6-10.3) mg/dL Adrenal panel 06/08/18 Range/Units 04:08 Sodium 134 L (136-145) mEq/L Potassium 3.4 L (3.5-5.1) mEq/L Chloride 105 (98-107) mEq/L Carbon Dioxide 24 (23-29) mEq/L BUN 11 (8-23) mg/dL Creatinine 0.75 (0.70-1.30) mg/dL Glucose 126 H (70-105) mg/dL Calcium 8.2 L (8.6-10.3) mg/dL Total Bilirubin 0.5 (0.3-1.0) mg/dL AST 34 (13-39) Units/L ALT 16 (7-52) Units/L Alkaline Phosphatase 48 (34-104) Units/L Albumin 2.8 L (3.5-5.7) g/dL - VTE Documentation of Mechanical Device: Intermittent pneumatic compression device Consult Discharge Plan - Plan Instructions: Laparoscopic Cholecystectomy (DC) Additional Instructions: General Surgical Discharge Instructions 1. No pushing, pulling, or lifting greater than 15 lbs for 2-4 weeks (depending upon procedure). 2. You may shower beginning today, but no tub baths, soaking, or swimming for 2 weeks. 3. You may resume driving when you are off narcotics and are safe to react in a car. 4. Take ibuprofen every 8 hours for discomfort. If this does not relieve discomfort, you may take the as needed Percocet. Take narcotics as directed. Do not take more narcotics then directed and do not share your narcotics with any other person. Do not drink alcohol while on narcotics. 5. Take stool softeners (Colace) or a water based laxative (Miralax) while taking narcotics. You may hold for loose stools. 6. Report any fevers greater than 100.5F, increase abdominal discomfort, drainage that looks like pus, increased redness or pain at the surgical site, or any vomiting. 7. Report any pain in the calves, shortness of breath, or rapid heartbeat. 8. Follow-up in the office as directed. 9. If you were prescribed antibiotics, do not stop them without talking to your provider. Referrals: Joselo Loaiza MD [Family Provider] - (office is closed today please call monday and make a follow up appointment ) Linette Mcbride CNP [Advanced Practice Nurse] - 06/21/18 9:00 am Prescriptions: OxyCODONE/APAP 5/325 [Percocet 5/325 MG] 1 each PO Q6HR PRN 7 Days #28 tablet PRN Reason: Pain Ciprofloxacin HCl [Cipro] 500 mg PO Q12H 5 Days #10 tablet metroNIDAZOLE [Flagyl] 500 mg PO TID 5 Days #15 tablet <Sebastien Edgejohnny Newberry - Last Filed: 06/08/18 11:11> Date of Encounter: 06/08/18 Time of Encounter: 07:00 - Assessment and Plan (1) Acute cholecystitis Current Visit: Yes Status: Acute tolerated clears, advance to cardiac diet due to pus seen during cholecystectomy plan outpatient antibiotics for 5 days prn pain control ok to DC from surgery standpoint when medically appropriate will sign off at this time Subjective Patient reports: no new complaints, feels better, still having pain, tolerating liquids well, voiding w/o difficulty, flatus Objective Vital Signs - Last 8 Hours Temp Pulse Resp BP Pulse Ox 06/08/18 10:28 98.2 F 72 16 157/112 91 06/08/18 07:08 97.6 F 62 159/77 88 06/08/18 04:36 98.1 F 64 18 135/74 94 Intake and Output 06/07/18 06/08/18 06/08/18 23:59 07:59 15:59 Intake Total 450 / 450 1150 / 1150 240 / 240 Output Total 200 / 200 Balance 250 / 250 1150 / 1150 240 / 240 Intake: IV Fluids 300 / 300 1100 / 1100 0.9 % Sodium Chloride 1,000 ML 1000 / 1000 @ 80 mls/hr IVC .[id number] [facility] Rx #:[id number] Cipro Premix 400 MG/200 ML 400 200 / 200 mg In 200 ml @ 200 mls/hr IVPB Q12HR [facility] Rx#:[id number] Flagyl Premix 500 MG/100 ML 500 100 / 100 100 / 100 mg In 100 ml @ 100 mls/hr IVPB Q8HR [facility] Rx#:[id number] Oral 150 / 150 50 / 50 240 / 240 Output: Urine 200 / 200 Other: Meal Breakfast Percent of Meal Consumed 100% Stool Size Large Stool Consistency loose Stool Color Brown # Voids 0 0 # Bowel Movements 1 Weight 61.2 kg - General physical appearance no distress, no pain - Eyes PERRL (right cataract), normal ocular movement - ENT normal mucosa, atraumatic - Neck Neck exam: trachea midline - Respiratory normal expansion, normal respiratory effort - Cardiovascular Cardiovascular exam: Present: RRR - Abdomen Abdomen: Present: soft, tender. Absent: distended, guarding, rebound, rigid - Incision Incision: Present: clean and dry, intact - Integumentary no rash - Neurologic CN 2-12 grossly intact - Musculoskeletal normal posture - Psychiatric oriented to time, oriented to person, oriented to place, speech is normal, memory intact - Labs 06/08/18 04:08 06/08/18 04:08 Diabetes panel 06/08/18 Range/Units 04:08 Sodium 134 L (136-145) mEq/L Potassium 3.4 L (3.5-5.1) mEq/L Chloride 105 (98-107) mEq/L Carbon Dioxide 24 (23-29) mEq/L BUN 11 (8-23) mg/dL Creatinine 0.75 (0.70-1.30) mg/dL Glucose 126 H (70-105) mg/dL Calcium 8.2 L (8.6-10.3) mg/dL AST 34 (13-39) Units/L ALT 16 (7-52) Units/L Alkaline Phosphatase 48 (34-104) Units/L Albumin 2.8 L (3.5-5.7) g/dL Calcium panel 06/08/18 Range/Units 04:08 Calcium 8.2 L (8.6-10.3) mg/dL Albumin 2.8 L (3.5-5.7) g/dL Pituitary panel 06/08/18 Range/Units 04:08 Sodium 134 L (136-145) mEq/L Potassium 3.4 L (3.5-5.1) mEq/L Chloride 105 (98-107) mEq/L Carbon Dioxide 24 (23-29) mEq/L BUN 11 (8-23) mg/dL Creatinine 0.75 (0.70-1.30) mg/dL Glucose 126 H (70-105) mg/dL Calcium 8.2 L (8.6-10.3) mg/dL Adrenal panel 06/08/18 Range/Units 04:08 Sodium 134 L (136-145) mEq/L Potassium 3.4 L (3.5-5.1) mEq/L Chloride 105 (98-107) mEq/L Carbon Dioxide 24 (23-29) mEq/L BUN 11 (8-23) mg/dL Creatinine 0.75 (0.70-1.30) mg/dL Glucose 126 H (70-105) mg/dL Calcium 8.2 L (8.6-10.3) mg/dL Total Bilirubin 0.5 (0.3-1.0) mg/dL AST 34 (13-39) Units/L ALT 16 (7-52) Units/L Alkaline Phosphatase 48 (34-104) Units/L Albumin 2.8 L (3.5-5.7) g/dL - Attending Attestation I examined this patient and my medical decision-making was reviewed with the Resident Physician. I agree with the documented findings, disposition and treatment plan as described except to the extent set forth below.
[2018-06-08 10:29] VITALS: BP 157/112
--- NOTE | 2018-06-08 11:52 | Physician Discharge Referral ---
- Respiratory Orders Smoking Cessation: Smoking cessation has been advised. For more information, call the [place] Tobacco Quit Line at 6-870-FMGV-NOW. - Transfer Medications Prescriptions: OxyCODONE/APAP 5/325 [Percocet 5/325 MG] 1 each PO Q6HR PRN 7 Days #28 tablet PRN Reason: Pain Ciprofloxacin HCl [Cipro] 500 mg PO Q12H 5 Days #10 tablet metroNIDAZOLE [Flagyl] 500 mg PO TID 5 Days #15 tablet Home Medications: Aspirin [Lo-Dose Aspirin EC] 81 mg PO DAILY 06/04/18 [History] Ciprofloxacin HCl [Cipro] 500 mg PO Q12H 5 Days #10 tablet 06/08/18 [Rx] OxyCODONE/APAP 5/325 [Percocet 5/325 MG] 1 each PO Q6HR PRN 7 Days #28 tablet [Rx] metroNIDAZOLE [Flagyl] 500 mg PO TID 5 Days #15 tablet 06/08/18 [Rx] Allergies/Adverse Reactions: 3 Allergy/AdvReac Type Severity Reaction Status Date / Time adhesive tape Allergy Rash Verified 06/04/18 17:55 Penicillins Allergy Hives Verified 06/04/18 17:55 Certification: Further, I certify that my clinical findings support that this patient is homebound (i.e. absences from home require considerable and taxing effort and are for medical reasons or restoration services or infrequently or short duration when for other reasons) because: Attestation: My signature below is to certify that this patient is under my care and that I, or nurse practitioner, or a physician's wet process miller head assistant working with me, has a face-to -face encounter with this patient.
--- NOTE | 2018-06-08 11:52 | Discharge Summary ---
<Antwon De - Last Filed: 06/08/18 19:18> Orders not resulted at time of discharge: Pending orders 06/05/18 04:07 Culture,Blood [BC] Routine Date of Encounter: 06/08/18 - Discharge Diagnosis (1) Acute cholecystitis Priority: Primary Status: Acute (2) CAD (coronary artery disease) Priority: Secondary Status: Chronic Qualifiers: Coronary Disease-Associated Artery/Lesion type: [place] artery [place] vs. transplanted heart: [place] heart Associated angina: without angina Qualified Code(s): I25.10 - Atherosclerotic heart disease of creek coronary artery without angina pectoris (3) Tobacco abuse Priority: Secondary Status: Chronic (4) Moderate protein-calorie malnutrition Priority: Secondary Status: Chronic (5) Chronic respiratory failure with hypoxia Priority: Secondary Status: Chronic Hospital course: Mr. Alexander is a 73 year old male - Time Spent with Patient Total time spent providing and/or coordinating discharge services: 38min - Discharge Medications Prescriptions: Atorvastatin [Lipitor] 40 mg PO HS #30 tablet Ciprofloxacin HCl [Cipro] 500 mg PO Q12H 5 Days #10 tablet Lisinopril [Zestril] 2.5 mg PO DAILY #30 tablet Metoprolol [Lopressor] 12.5 mg PO BID #60 tablet metroNIDAZOLE [Flagyl] 500 mg PO TID 5 Days #15 tablet Home Medications: Aspirin [Lo-Dose Aspirin EC] 81 mg PO DAILY 06/04/18 [History] Atorvastatin [Lipitor] 40 mg PO HS #30 tablet 06/08/18 [Rx] Ciprofloxacin HCl [Cipro] 500 mg PO Q12H 5 Days #10 tablet 06/08/18 [Rx] Lisinopril [Zestril] 2.5 mg PO DAILY #30 tablet 06/08/18 [Rx] Metoprolol [Lopressor] 12.5 mg PO BID #60 tablet 06/08/18 [Rx] metroNIDAZOLE [Flagyl] 500 mg PO TID 5 Days #15 tablet 06/08/18 [Rx] Allergies/Adverse Reactions: 3 Allergy/AdvReac Type Severity Reaction Status Date / Time adhesive tape Allergy Rash Verified 06/04/18 17:55 Penicillins Allergy Hives Verified 06/04/18 17:55 Date of admission: 06/06/18 17:42 Primary care physician: PCP NONE Consults: 06/05/18 04:46 Consult to Physician [CONS] Routine Consulting Provider: Angel Brothers Reason for Consult: LBBB; + TRP Call Completed: No 06/05/18 13:15 Consult to Denture Packer [CONS] Routine Reason for SW Consult: Possible home health services 06/05/18 13:16 Consult to Physical Therapy [CONS] Routine Comment: Evaluate, develop and implement POC Reason for Consult: 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 Does patient have active BEDREST order?: No Is patient medically & hemodynamically stable?: Yes 06/05/18 13:17 Consult to Occupational Therapy [CONS] Routine Comment: Evaluate, develop and implement POC Reason for Consult: Deficits post CVA Does patient have active BEDREST order?: No Is patient medically & hemodynamically stable?: Yes 06/05/18 16:12 Consult to Surgery [CONS] Routine Consulting Provider: [facility] Reason for Consult: HIDA scan suggestive of chronic cholecystitis; intermittent RUQ pain, negative velez's, afebrile, WBCs wnl, thank you Time Notified: 16:00 Call Completed: Yes - Constitutional Vitals: Temp Pulse Resp BP Pulse Ox 98.2 F 72 16 157/112 91 06/08/18 10:28 06/08/18 10:28 06/08/18 10:28 06/08/18 10:28 06/08/18 11:27 - Patient Status Disposition: Home, Self-Care Condition: Good - Discharge Instructions Instructions: Laparoscopic Cholecystectomy (DC) Follow Up With: Linette Mcbride CNP [Advanced Practice Nurse] - 06/21/18 9:00 am Lopez Villarreal [Resident] - 06/22/18 2:00 pm Additional Instructions: General Surgical Discharge Instructions 1. No pushing, pulling, or lifting greater than 15 lbs for 2-4 weeks (depending upon procedure). 2. You may shower beginning today, but no tub baths, soaking, or swimming for 2 weeks. 3. You may resume driving when you are off narcotics and are safe to react in a car. 4. Take ibuprofen every 8 hours for discomfort. If this does not relieve discomfort, you may take the as needed Percocet. Take narcotics as directed. Do not take more narcotics then directed and do not share your narcotics with any other person. Do not drink alcohol while on narcotics. 5. Take stool softeners (Colace) or a water based laxative (Miralax) while taking narcotics. You may hold for loose stools. 6. Report any fevers greater than 100.5F, increase abdominal discomfort, drainage that looks like pus, increased redness or pain at the surgical site, or any vomiting. 7. Report any pain in the calves, shortness of breath, or rapid heartbeat. 8. Follow-up in the office as directed. 9. If you were prescribed antibiotics, do not stop them without talking to your provider. - Attending Attestation I examined this patient and my medical decision-making was reviewed with the Resident Physician on 06/08/18. I agree with the documented findings, disposition and treatment plan as described except to the extent set forth below. Mr Alexander has been admitted for gallbladder dysfunction and unstable angina. He had LHC and will follow up as outpatient for further treatment. He had cholecystectomy without issue. He has qualified for oxygen and it has been arranged. He does not want HHC. At this time he is afebrile and ready for discharge Exam Alert and comfortable Mucus membranes dry Heart distant Lungs clear Abd soft No edema Plan D/C home today Oxygen <Lopez Villarreal - Last Filed: 06/08/18 19:29> - NOTES TO OUTPATIENT PROVIDER Notes to Outpatient Provider: -Follow-up with a journal clerk for further management of outcome of LHC. -Follow up with the surgery post op. - continue taking your abx for 3 more days. -No pushing, pulling, lifting greater than 15 pounds for 2-4 weeks. Orders not resulted at time of discharge: Pending orders 06/05/18 04:07 Culture,Blood [BC] Routine Date of Encounter: 06/08/18 Time of Encounter: 09:30 Hospital course: Mr. Alexander is a 73 year old male who was admitted to the [facility] for acute abdomen, found to have cholecystitis on ultrasound. This was confirmed by the HIDA scan. Patient underwent laparoscopic cholecystectomy on June 07, is continuing 5 day course of Cipro/Flagyl. He was stable postoperatively. Prior to surgery his TTE revealed reduced ejection fraction 45%. LHC performed revealed 70% pRamus endorses and moderate LAD disease. Patient has been recommended to follow-up with cardiology outpatient after his surgery, for a potential PCI. - Time Spent with Patient Total time spent providing and/or coordinating discharge services: Date of admission: 06/06/18 17:42 Primary care physician: PCP NONE Consults: 06/05/18 04:46 Consult to Physician [CONS] Routine Consulting Provider: Angel Brothers Reason for Consult: LBBB; + TRP Call Completed: No 06/05/18 13:15 Consult to Denture Packer [CONS] Routine Reason for SW Consult: Possible home health services 06/05/18 13:16 Consult to Physical Therapy [CONS] Routine Comment: Evaluate, develop and implement POC Reason for Consult: 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 Does patient have active BEDREST order?: No Is patient medically & hemodynamically stable?: Yes 06/05/18 13:17 Consult to Occupational Therapy [CONS] Routine Comment: Evaluate, develop and implement POC Reason for Consult: Deficits post CVA Does patient have active BEDREST order?: No Is patient medically & hemodynamically stable?: Yes 06/05/18 16:12 Consult to Surgery [CONS] Routine Consulting Provider: [facility] Reason for Consult: HIDA scan suggestive of chronic cholecystitis; intermittent RUQ pain, negative velez's, afebrile, WBCs wnl, thank you Time Notified: 16:00 Call Completed: Yes - Constitutional Vitals: Temp Pulse Resp BP Pulse Ox 98.2 F 72 16 157/112 91 06/08/18 10:28 06/08/18 10:28 06/08/18 10:28 06/08/18 10:28 06/08/18 11:27 General appearance: Present: cooperative, A&O X 3, pleasant, no acute distress, answers questions appropriately Exam: General: alert and oriented x 3 CV: RRR, no murmurs Resp: CTAB, no rales, ronchi or crackles GI: bowel sounds x 4, postsurgical tenderness. No guarding or rebound tenderness. Ext: no pedal edema Neuro: paralysis and contracture of of LUE, left wrist and fingers, sensation intact - Patient Status Overall status at discharge: patient is progressing back to baseline - Diet and Activity Activity: increase activity as tolerated, wear oxygen at all times Diet: low fat, low cholesterol, low salt diet - VTE Documentation of Mechanical Device: Intermittent pneumatic compression device
[2018-06-09] MEDS ORDERED: Potassium Chloride Elixir 20 MEQ/15 ML UDC PO SCH (09:00)
== END 2018-06-08 18:41 | disposition home or self-care (01) | DRG 418 ==
LOC: 2NENU → SUATTDRO 22:01
PROVIDERS: ADMIT Pediatrics; ATTEND Internal Medicine